=== PATIENT | female | born 1990 | race Caucasian/White ===

== ENCOUNTER 2020-02-21 08:36 | Emergency (ER) | payer OTHER, SELFPAY ==
[2020-02-21 08:42] VITALS: BP 115/75; PULSE 89; RESP 16; TEMP 36.5; O2SAT 98; BMI 32.0
[2020-02-21 09:25] LABS: Glucose Urine UA NEG (NEG); Leukocyte Esterase Urine NEG (NEG); Nitrite Urine NEG (NEG); PH 5.5 (5.0-8.0); Specific Gravity - Urine >= 1.030 (1.005-1.025); Urine Blood 1+ (NEG); Urine Ketones NEG (NEG); Urine Protein NEG (NEG-TRACE)
[2020-02-21 09:26] LABS: Appearance Urine CLOUDY; Color Urine YELLOW
[2020-02-21 09:44] LABS: UPreg QC Valid YES; Urine Pregnancy NEGATIVE (NEGATIVE); WBC Urine 30-49 /HPF (0-4)
[2020-02-21 09:45] LABS: Bacteria Urine 1+ /LPF; Squamous Epithelial Cell Urine 1+ /LPF
[2020-02-21 10:02] VITALS: BP 120/73; PULSE 73; RESP 18; TEMP 36.4; O2SAT 100
--- NOTE | 2020-02-21 10:19 | ED_ITS ---
HPI - Female Genitourinary General Chief complaint: Urogenital-Female Stated complaint: bladder infection Time Seen by Provider: 02/21/20 08:45 Source: patient Mode of arrival: ambulatory Limitations: no limitations History of Present Illness HPI Narrative: 29-year-old female presenting to the ED with complaints of burning with urination in a white thin malodorous discharge for the past 3 days. Denies any fevers, nausea / vomiting, abdominal pain or any other symptom complaints or concerns. Reports she has been with her partner for over 4 years and does not have any concerns for any STDs. Reports no chance of . Related Data Previous Rx's Medication Instructions Recorded metronidazole [Flagyl] 500 mg PO BID 7 Days #14 tab 02/21/20 nitrofurantoin monohyd/m-cryst 100 mg PO BID 7 Days #14 cap 02/21/20 [Macrobid] Allergies Allergy/AdvReac Type Severity Reaction Status Date / Time No Known Allergies Allergy Verified 02/21/20 08:47 Review of Systems Review of Systems: Constitutional : No Fever, No Chills ENT/Mouth : No sore throat, No Rhinorrhea Eyes: No Eye Pain, No Redness Cardiovascular : No Chest Pain, No SOB Respiratory : No Cough, No Sputum, No Wheezing Gastrointestinal : No Nausea, No Vomiting, No Diarrhea, positive abdominal pain, Genitourinary : No irregular bleeding, + Dysuria, + Urinary Frequency, No pelvic pain, + Vaginal discharge Musculoskeletal : No Myalgias Skin : No rash Neuro : No Weakness, No Headache Psych : No Anxiety/Panic, No Depression Heme/Lymph: No bruising, No Lymphadenopathy Endocrine : No Polyuria, No Polydipsia Yes all other systems are reviewed and are negative [facility] Past Medical History Attestation statement: The following information was validated with the patient. Medical History No known health problems Social History Social History Advance Directives: No Advance Directives Information Provided: No Physical Exam Vital Signs: Vital Signs: Last Vital Signs Temp 97.6 F 02/21/20 10:02 Pulse 73 02/21/20 10:02 Resp 18 02/21/20 10:02 BP 120/73 02/21/20 10:02 Pulse Ox 100 02/21/20 10:02 Body Mass Index 32.0 vital signs have been reviewed as normal and appeared to be correct. Blood pressure normal. Heart rate normal. Respiration rate normal. Temperature normal. Oxygen saturation normal. Appearance: Alert. Oriented X3. No acute distress. Head: Normal external exam. Normocephalic. Atraumatic. No Sherwood signs noted. No raccoon eyes noted Eyes: PERRLA. EOMI. Conjunctiva and sclera normal. Eyelids normal. ENT: EAC normal. TM's Normal. Pharynx normal. Uvula midline. Moist mucous membranes. No trismus noted. No drooling noted. No muffled voice noted. Neck: Normal inspection. Neck supple. FROM. No adenopathy. Thyroid Normal. No meningeal signs. No neck mass noted. CVS: Normal heart rate and rhythm. Heart sound normal. No murmurs noted. Pulses normal throughout. Respiratory: No respiratory distress. Painless inspiration. Breath sounds normal. No wheezes/rales/rhonchi noted. Chest nontender. No accessory muscle usage noted or decreased air movement noted. Abdomen: Soft and nontender. Bowel sounds normal in all 4 quadrants. No distention noted. No organomegaly noted. No visible injury noted. : Supervised by SIMON Rudolph Normal external appearance of urethra. No lesions/lacerations or discharge or tenderness noted. Speculum exam normal appearance/palpation of vagina normal. A thin white malodorous discharge c/w bacterial vaginosis. Otherwise no vaginal erythema. No foreign bodies noted. No vaginal laceration/lesions or active bleeding noted. No tissue present in vagina. No vaginal mass noted. No vaginal swelling noted. No vaginal tenderness noted. Normal appearance of cervix. Normal palpation of cervix. Cervical os is closed. No abnormal cervical discharge noted. No cervical lesion/mass. No Bartholin cyst noted. No cervical motion tenderness noted. Negative chandelier sign. Normal bimanual exam. Uterine size normal. Bladder normal to palpation. Uterine consistency normal. Normal cervical palpation. Uterine mobility normal. Uterine shape normal. Normal adnexa. Normal rectovaginal exam. Back: No CVA tenderness. Full range of motion noted. Skin: Skin warm and dry. Normal skin color. Normal skin turgor. No rashes/lesions/lacerations noted. Extremities: No lower extremity edema. Extremities exhibit normal range of motion. Extremities nontender. Neuro: Oriented X 3. No motor deficit. No sensory deficit. Reflexes normal. Course Course Course Narrative: 29-year-old female presenting to the ED with complaints of dysuria with increased urgency and frequency with a white thin malodorous discharge for the past 2-3 days. Reports a history of BV in the past. Reports she is not concerned for any STDs has she has been with her partner for over 4 years. I sent a UA and negative nitrates although she has moved multiple white blood cells and a trace of epithelial cells therefore consistent with UTI. Negative . Urine bacteria is positive therefore will treat for bacterial vaginosis. Awaiting Trichomonas/yeast/ bacterial vaginosis/ gonorrhea/ chlamydia panel. Although not treating for gonorrhea / chlamydia/yeast or Trichomonas will treat for only bacterial vaginosis and instructions return if any new or worsening symptoms and to wait a call if any positive results. Patient understands and agrees with this plan. MDM - Female Genitourinary Medical Records Attestation: I reviewed the patient's medical records. Lab Data Attestation: I reviewed the patient's lab results. Labs: Lab Results 02/21/20 Range/Units 09:19 Urine Color YELLOW Urine Appearance CLOUDY Urine pH 5.5 (5.0-8.0) Ur Specific [place] >= 1.030 H (1.005-1.025) Urine Protein NEG (NEG-TRACE) MG/DL Urine Glucose (UA) NEG (NEG) MG/DL Urine Ketones NEG (NEG) MG/DL Urine Blood 1+ H (NEG) Urine Nitrite NEG (NEG) Ur Leukocyte Esterase NEG (NEG) Urine RBC 1-4 (0) /HPF Urine WBC 30-49 H (0-4) /HPF Ur Squamous Epith Cells 1+ /LPF Urine Bacteria 1+ /LPF Urine Test NEGATIVE (NEGATIVE) Discharge Plan Discharge Clinical Impression: Urinary tract infection, Bacterial vaginosis Patient Disposition: Home, Self-Care Instructions: Bacterial Vaginosis (ED), Urinary Tract Infection in Women (ED) Additional Instructions: you have pending lab results if any are positive you will be contacted. Prescriptions: New metronidazole [Flagyl] 500 mg tablet 500 mg PO BID 7 Days Qty: 14 RF: 0 nitrofurantoin monohyd/m-cryst [Macrobid] 100 mg capsule 100 mg PO BID 7 Days Qty: 14 RF: 0 Referrals: Tristen Pederson MD [Primary Care Provider] - 2 days Print Language: Turkmen
[2020-02-21 13:15] LABS: BV Int Neg Control Negative (Negative); BV Int Pos Control Positive (Positive)
[2020-02-26 15:29] LABS: CT PCR NOT DETECTED (Not Detect.); NG PCR NOT DETECTED (Not Detect.)
== END 2020-02-21 10:32 | disposition home or self-care (01) ==
PROVIDERS: Physician Assistant Medical; Emergency Provider Internal Medicine; PCP Internal Medicine
DX: N39.0 Urinary tract infection, site not specified (principal); N76.0 Acute vaginitis; Z79.899 Other long term (current) drug therapy
CPT/HCPCS: 81001; 81025; 87086; 87088; 87147; 87186; 87480; 87491; 87510; 87591; 87660; 99283

== ENCOUNTER 2020-12-20 10:45 | Emergency (ER) | payer OTHER, SELFPAY ==
[2020-12-20 11:11] VITALS: BP 137/71; PULSE 79; RESP 18; TEMP 36.7; O2SAT 99; BMI 32.2
--- NOTE | 2020-12-20 12:32 | ED.EXTPRO ---
HPI - Extremity Problem General Chief complaint: Extremity Injury, Upper Stated complaint: nail injury Time Seen by Provider: 12/20/20 12:20 Source: patient Mode of arrival: ambulatory Limitations: no limitations History of Present Illness HPI Narrative: 30-year-old female presenting to the ED with complaints of right middle finger nail pain after she was opening a diaper box in her acrylic nail bent backwards and since then she has been having pain. She denies any other symptoms complaints or concerns at this time. MD Complaint: extremity pain Onset (ago): minute(s) (Prior to arrival) Pain Consistency: constant Location: right and upper extremity (Middle fingernail) Severity scale (1-10): >10 Radiation: none Relieving factors: nothing Exacerbating factors: palpation Associated symptoms: denies other symptoms Related Data Previous Rx's Medication Instructions Recorded metronidazole 500 mg tablet 500 mg PO BID 7 Days #14 tab 02/21/20 (Flagyl) nitrofurantoin 100 mg PO BID 7 Days #14 cap 02/21/20 monohydrate/macrocrystals 100 mg capsule (Macrobid) cephalexin 500 mg capsule 500 mg PO Q6H 10 Days #40 cap 12/20/20 ibuprofen 800 mg tablet 800 mg PO Q8H PRN #14 tab 12/20/20 Allergies Allergy/AdvReac Type Severity Reaction Status Date / Time No Known Allergies Allergy Verified 12/20/20 11:11 Review of Systems Review of Systems: Constitutional : No Weight loss, No Fever, No Chills, No Night Sweats, No Fatigue, No Malaise ENT/Mouth : No Hearing loss, No Ear Pain, No Nasal Congestion, No Sinus Pain, No Hoarseness, No sore throat, No Rhinorrhea, No Swallowing Difficulty Eyes: No Eye Pain, No Swelling, No Redness, No Foreign Body, No Discharge, No Vision Changes Cardiovascular : No Chest Pain, No SOB, No Dyspnea on Exertion, No Orthopnea, No Edema, No Palpitations Respiratory : No Cough, No Sputum, No Wheezing, No Smoke Exposure, No Dyspnea Gastrointestinal : No Nausea, No Vomiting, No Diarrhea, No Constipation, No abdominal Pain, No Hematochezia, No Melena Genitourinary : no irregular bleeding, No Dysuria, No Urinary Frequency, No Hematuria, No Urinary Incontinence, No Urgency, No Flank Pain, No Urinary Flow Changes, No Hesitancy Musculoskeletal : + Nail injury, No joint pain, No Myalgias, No Joint Swelling Skin : No Skin Lesions, No rash Neuro : No Weakness, No Numbness, No Paresthesias, No Loss of Consciousness, No Dizziness, No Headache Psych : No Anxiety/Panic, No Depression, No SI/HI/AH/VH, No Social Issues, Heme/Lymph: No Bruising, No Bleeding,No Lymphadenopathy Endocrine : No Polyuria, No Polydipsia, No Temperature Intolerance Yes all other systems are reviewed and are negative [facility] Past Medical History Attestation statement: The following information was validated with the patient. Medical History No known health problems Social History Social History Advance Directives: No Physical Exam Vital Signs: Vital Signs: Last Vital Signs Temp 98.0 F 12/20/20 11:11 Pulse 79 12/20/20 11:11 Resp 18 12/20/20 11:11 BP 137/71 12/20/20 11:11 Pulse Ox 99 12/20/20 11:11 Body Mass Index 32.2 vital signs have been reviewed as normal and appeared to be correct. Blood pressure normal. Heart rate normal. Respiration rate normal. Temperature normal. Oxygen saturation normal. Appearance: Alert. Oriented X3. No acute distress. Head: Normal external exam. Normocephalic. Atraumatic. Eyes: PERRLA. EOMI. Conjunctiva and sclera normal. Eyelids normal. ENT: Pharynx normal. Uvula midline. Moist mucous membranes. Neck: Normal inspection. Neck supple. FROM. CVS: Normal heart rate and rhythm. Respiratory: No respiratory distress. Painless inspiration. Skin: Skin warm and dry. Normal skin color. Normal skin turgor. No rashes/lesions/lacerations noted. Extremities: To right index finger at the nail patient has an acrylic nail at the distal aspect of the nail not including the nail bed patient has the acrylic nail hanging off by a piece of thread I was able to pull it off and the rest of the nail was within normal limits. The nailbed is within normal limits. No foreign bodies noted. No bony tenderness is noted. Otherwise all other Extremities exhibit normal range of motion and nontender. Neuro: Oriented X 3. No motor deficit. No sensory deficit. Reflexes normal. Normal steady gait. No focal neuro deficits noted. Vascular: + radial pulses/+ 2 distal pedal pulses/+2 dorsalis pedis b/l. Normal cap refill. No cyanosis noted to upper extremity nails and lower extremity toes nails. Discharge Plan Discharge Clinical Impression: Fingernail injury Patient Disposition: Home, Self-Care Instructions: Nail Avulsion (ED) Prescriptions: New ibuprofen 800 mg tablet 800 mg PO Q8H PRN (Reason: pain) Qty: 14 RF: 0 cephalexin 500 mg capsule 500 mg PO Q6H 10 Days Qty: 40 RF: 0 No Action metronidazole [Flagyl] 500 mg tablet 500 mg PO BID 7 Days Qty: 14 RF: 0 nitrofurantoin monohyd/m-cryst [Macrobid] 100 mg capsule 100 mg PO BID 7 Days Qty: 14 RF: 0 Referrals: Tristen Pederson MD [Primary Care Provider] - 2 days Print Language: Kuwaiti
== END 2020-12-20 12:46 | disposition home or self-care (01) ==
PROVIDERS: Emergency Provider Emergency Medicine; PCP Internal Medicine
DX: S61.302A Unspecified open wound of right middle finger with damage to nail, initial encounter (principal); M79.641 Pain in right hand; X58.XXXA Exposure to other specified factors, initial encounter; Y93.9 Activity, unspecified; Y92.9 Unspecified place or not applicable; Y99.9 Unspecified external cause status; Z79.899 Other long term (current) drug therapy
CPT/HCPCS: 99282; 99283

== ENCOUNTER 2021-01-26 19:07 | Emergency (ER) | payer OTHER, SELFPAY ==
[2021-01-26 19:15] VITALS: BP 127/68; PULSE 77; RESP 18; TEMP 36.7; O2SAT 99; BMI 31.1
[2021-01-26 19:37] LABS: Appearance Urine HAZY; Color Urine YELLOW; Glucose Urine UA NEG (NEG); Leukocyte Esterase Urine 1+ (NEG); Nitrite Urine NEG (NEG); UACC Culture Trigger YES; Urine Blood TRACE (NEG); Urine Ketones NEG (NEG); Urine Protein TRACE MG/DL (NEG-TRACE)
[2021-01-26 19:43] LABS: Bacteria Urine 1+ /LPF; Squamous Epithelial Cell Urine 1+ /LPF
[2021-01-26 19:44] LABS: RBC Urine 0-2 /HPF (0)
[2021-01-26] MEDS: cephALEXin 500 MG CAPSULE PO (21:25)
--- NOTE | 2021-01-26 21:34 | ED.FEMALEGU ---
HPI - Female Genitourinary General Chief complaint: Urogenital-Female Stated complaint: bladder infection Time Seen by Provider: 01/26/21 21:18 Source: patient Mode of arrival: ambulatory History of Present Illness HPI Narrative: 30-year-old female without significant past medical history who presents with 2-3 days of pain, burning on urination as well as frequency and denies any associated fever, chills, nausea, vomiting. Related Data Previous Rx's Medication Instructions Recorded metronidazole 500 mg tablet 500 mg PO BID 7 Days #14 tab 02/21/20 (Flagyl) nitrofurantoin 100 mg PO BID 7 Days #14 cap 02/21/20 monohydrate/macrocrystals 100 mg capsule (Macrobid) cephalexin 500 mg capsule 500 mg PO Q6H 10 Days #40 cap 12/20/20 ibuprofen 800 mg tablet 800 mg PO Q8H PRN #14 tab 12/20/20 cephalexin 500 mg capsule 500 mg PO Q12H 3 Days #6 cap 01/26/21 phenazopyridine 100 mg tablet 100 mg PO TID PRN #6 tab 01/26/21 (Pyridium) Allergies Allergy/AdvReac Type Severity Reaction Status Date / Time No Known Allergies Allergy Verified 01/26/21 19:14 Review of Systems Review of Systems: Pertinent positives and negatives as stated in HPI 10 point review of systems is otherwise negative. PMFSH Past Medical History Source: nursing notes reviewed Medical History Urinary tract infection Social History Social History Advance Directives: No Advance Directives Information Provided: No Patient : No Physical Exam Vital Signs: Vital Signs: Last Vital Signs Temp 98.1 F 01/26/21 19:15 Pulse 77 01/26/21 19:15 Resp 18 01/26/21 19:15 BP 127/68 01/26/21 19:15 Pulse Ox 99 01/26/21 19:15 Body Mass Index 31.1 VITAL SIGNS: Reviewed. GENERAL: Well developed, well nourished, in no acute distress. HEAD: Normocephalic/atraumatic EYES: PERRLA, EOMI OROPHARYNX: no oral lesions noted, posterior pharynx clear NECK: Supple, no adenopathy LUNGS: Normal breath sounds. SpO2<99> CARDIOVASCULAR: Regular rate and rhythm without noted murmurs ABDOMEN: Soft, non-tender, non-distended with bowel sounds. Course Course Course Narrative: 30-year-old female with history and clinical presentation consistent with UTI which was further corroborated and patient was treated with initial antibiotics here in the emergency room and then discharged in stable condition with remaining course. MDM - Female Genitourinary Lab Data Labs: Lab Results 01/26/21 Range/Units 19:25 Urine Color YELLOW Urine Appearance HAZY Urine pH 7.0 (5.0-8.0) Ur Specific [place] 1.020 (1.005-1.025) Urine Protein TRACE (NEG-TRACE) MG/DL Urine Glucose (UA) NEG (NEG) MG/DL Urine Ketones NEG (NEG) MG/DL Urine Blood TRACE (NEG) Urine Nitrite NEG (NEG) Ur Leukocyte Esterase 1+ H (NEG) Urine RBC 0-2 (0) /HPF Urine WBC 1-4 (0-4) /HPF Ur Squamous Epith Cells 1+ /LPF Urine Bacteria 1+ /LPF Discharge Plan Discharge Clinical Impression: Urinary tract infection Patient Disposition: Home, Self-Care Instructions: Cephalexin (By mouth), Phenazopyridine (By mouth), Urinary Tract Infection in Women (ED) Additional Instructions: 1. Please complete the entire course of antibiotics. Return to the ER for acute worsening of symptoms. Prescriptions: New cephalexin 500 mg capsule 500 mg PO Q12H 3 Days Qty: 6 RF: 0 phenazopyridine [Pyridium] 100 mg tablet 100 mg PO TID PRN (Reason: pain) Qty: 6 RF: 0 No Action metronidazole [Flagyl] 500 mg tablet 500 mg PO BID 7 Days Qty: 14 RF: 0 nitrofurantoin monohyd/m-cryst [Macrobid] 100 mg capsule 100 mg PO BID 7 Days Qty: 14 RF: 0 ibuprofen 800 mg tablet 800 mg PO Q8H PRN (Reason: pain) Qty: 14 RF: 0 cephalexin 500 mg capsule 500 mg PO Q6H 10 Days Qty: 40 RF: 0 Referrals: [facility] [Primary Care Provider] - 2 days
== END 2021-01-26 22:13 | disposition home or self-care (01) ==
PROVIDERS: Emergency Provider Student in an Organized Health Care Education/Training Program
DX: N39.0 Urinary tract infection, site not specified (principal)
CPT/HCPCS: 81001; 87086; 87147; 99283; 99284

== ENCOUNTER 2022-02-02 09:02 | Emergency (ER) | payer OTHER, SELFPAY ==
[2022-02-02 09:09] VITALS: BP 136/76; PULSE 89; RESP 16; TEMP 36.8; O2SAT 99; BMI 34.9
[2022-02-02 09:24] LABS: Appearance Urine Clear; Color Urine Yellow; Glucose Urine UA Negative (Negative); Leukocyte Esterase Urine Small (1+) (Negative); Nitrite Urine Negative (Negative); Specific Gravity - Urine 1.025 (1.005-1.025); UMIC TRIGGER UACC YES; Urine Blood Trace (Negative); Urine Ketones Negative (Negative); Urine Protein Negative (Neg-Trace)
--- NOTE | 2022-02-02 09:24 | ED_ITS ---
HPI - Female Genitourinary General Chief complaint: Urogenital-Female Stated complaint: Bladder Infection Time Seen by Provider: 02/02/22 09:20 Source: patient Mode of arrival: ambulatory Limitations: no limitations History of Present Illness HPI Narrative: Patient is a 31-year-old female who presents emergency department for evaluation of foul-smelling urine and urinary frequency. She has reports of vague back pain intermittently. Denies fevers, chills, nausea, vomiting, abdominal pain, dysuria, urinary urgency/hesitancy. Denies any pelvic pain, denies possibility of . She does also endorse having some white creamy vaginal discharge. States that she has had this in the past was advised by her maintenance superintendent provider that this is a vaginosis, she states that she has had an increase in discharge recently. Denies concern for sexually transmitted infections. Related Data Previous Rx's Medication Instructions Recorded metronidazole 500 mg tablet 500 mg PO BID BV 7 days #14 tabs 02/21/20 (Flagyl) nitrofurantoin 100 mg PO BID uti 7 days #14 caps 02/21/20 monohydrate/macrocrystals 100 mg capsule (Macrobid) cephalexin 500 mg capsule 500 mg PO Q6H 10 days #40 caps 12/20/20 ibuprofen 800 mg tablet 800 mg PO Q8H PRN pain #14 tabs 12/20/20 cephalexin 500 mg capsule 500 mg PO Q12H 3 days #6 caps 01/26/21 phenazopyridine 100 mg tablet 100 mg PO TID PRN pain 6 doses #6 01/26/21 (Pyridium) tabs cefuroxime axetil 250 mg tablet 250 mg PO Q12H #14 tabs 02/02/22 Allergies Allergy/AdvReac Type Severity Reaction Status Date / Time No Known Allergies Allergy Verified 01/26/21 19:14 Review of Systems Review of Systems: Constitutional: No fever, chills, weakness or fatigue. Skin: No rash or itching. Cardiovascular: No chest pain Respiratory: No shortness of breath or cough Gastrointestinal: No nausea, vomiting or diarrhea. No abdominal pain Genitourinary: Positive Urinary odor. Positive Vaginal discharge. No burning micturition. No urinary frequency or incontinence. Musculoskeletal: No muscle pain, back pain, joint pain or stiffness. Psychiatric: No depression or anxiety. Yes all other systems are reviewed and are negative PMFSH Past Medical History Attestation statement: The following information was validated with the patient. Source: old records reviewed Medical History Urinary tract infection Social History Social History Advance Directives: No Advance Directives Information Provided: Yes Physical Exam Vital Signs: Vital Signs: Last Vital Signs Temp 98.2 F 02/02/22 09:09 Pulse 89 02/02/22 09:09 Resp 16 02/02/22 09:09 BP 136/76 02/02/22 09:09 Pulse Ox 99 02/02/22 09:09 O2 Del Method 02/02/22 09:09 BMI result Body Mass Index 34.9 Appearance: Alert.?Oriented to person, place and time. No acute distress.?Normal affect..?? Neck: Normal inspection.? Neck supple.?? CVS: Heart sounds normal. Normal heart rate and rhythm.? Pulses normal.?? Respiratory: No respiratory distress.? Lung sounds clear to auscultation bilaterally?? Abdomen: Soft and non-tender. Normoactive bowel sounds. Skin: Skin warm and dry.? Normal skin color.? Extremities: No lower extremity edema.? Neuro: Moves all extremities spontaneously. Sensation intact bilaterally. Ambulates with normal steady gait. Course Course Course Narrative: Patient is a 31-year-old female no pertinent past medical history presenting to emergency department for evaluation of odorous urine, urinary frequency, and vaginal discharge. Patient declines possibility sexually transmitted infections and declines testing for such. Declines possibility of at this time, date of last menstrual period is uncertain. Physical examination is benign. Vital signs are stable. Afebrile without tachycardia. Specimen for bacterial vaginosis panel was sent to lab, results will be pending at the time of discharge, advised she will be contacted should her results come back as p ositive. Urine test is negative. Urinalysis reveals pyuria with trace bacteria and trace blood, no squamous epithelial cells present, therefore less likely to be urogenital contamination given patient's symptoms will treat as urinary tract infection. Given prescription for cefuroxime, discussed worrisome signs and symptoms to return back to emergency department for, outpatient follow-up with her primary care provider as needed. All questions answered. Discharged home in stable condition. MDM - Female Genitourinary Medical Records Attestation: I reviewed the patient's medical records. Lab Data Attestation: I reviewed the patient's lab results. Labs: Lab Results 02/02/22 Range/Units 09:18 Urine Color Yellow Urine Appearance Clear Urine pH 6.0 (5.0-9.0) Ur Specific [place] 1.025 (1.005-1.025) Urine Protein Negative (Neg-Trace) mg/dL Urine Glucose (UA) Negative (Negative) mg/dL Urine Ketones Negative (Negative) mg/dL Urine Blood Trace H (Negative) Urine Nitrite Negative (Negative) Ur Leukocyte Esterase Small (1+) H (Negative) Urine RBC 3-5 H (0-2) /HPF Urine WBC 21-50 H (0-5) /HPF Ur Squamous Epith Cells 0-2 (0-2) /HPF Urine Bacteria Trace (None Seen) Hyaline Casts 0-2 (0-2) /LPF Discharge Plan Discharge Clinical Impression: Urinary tract infection Patient Disposition: Home, Self-Care Instructions: Urinary Tract Infection in Women (ED) Additional Instructions: Be sure to stay well hydrated, avoid excessive vaginal/perineal cleansing, avoid douching, be sure to urinate after sexual intercourse. Given given a new prescription for an antibiotic, please complete this entire course. As discussed, should your additional testing results come back as positive you will receive a phone call in regards to this. Return to emergency department any new or worsening symptoms or concerns Follow-up with her primary care provider as needed Prescriptions: New cefuroxime axetil 250 mg tablet 250 mg PO Q12H Qty: 14 0RF No Action metronidazole [Flagyl] 500 mg tablet 500 mg PO BID 7 Days Qty: 14 0RF nitrofurantoin monohyd/m-cryst [Macrobid] 100 mg capsule 100 mg PO BID 7 Days Qty: 14 0RF Rx Instructions: must administer with a meal/food cephalexin 500 mg capsule 500 mg PO Q12H 3 Days Qty: 6 0RF phenazopyridine [Pyridium] 100 mg tablet 100 mg PO TID PRN (Reason: pain) Qty: 6 0RF ibuprofen 800 mg tablet 800 mg PO Q8H PRN (Reason: pain) Qty: 14 0RF cephalexin 500 mg capsule 500 mg PO Q6H 10 Days Qty: 40 0RF Referrals: Physician,None [Primary Care Provider] -
[2022-02-02 09:29] LABS: Bacteria Urine Trace (None Seen); Hyaline Casts Urine 0-2 /LPF (0-2); Squamous Epithelial Cell Urine 0-2 /HPF (0-2); UACC Culture Trigger YES; WBC Urine 21-50 /HPF (0-5)
[2022-02-02 09:42] LABS: UPreg QC Valid YES; Urine Pregnancy NEGATIVE (NEGATIVE)
[2022-02-03 15:01] LABS: BV Int Neg Control Negative (Negative); BV Int Pos Control Positive (Positive)
== END 2022-02-02 09:54 | disposition home or self-care (01) ==
PROVIDERS: Nurse Practitioner Family; Emergency Provider Emergency Medicine Emergency Medical Services
DX: N39.0 Urinary tract infection, site not specified (principal); Z79.899 Other long term (current) drug therapy
CPT/HCPCS: 81001; 81025; 87086; 87088; 87186; 87480; 87510; 87660; 99282; 99283

== ENCOUNTER 2022-06-30 07:57 | Emergency (ER) | payer OTHER, SELFPAY ==
[2022-06-30 08:00] VITALS: BP 133/68; PULSE 83; RESP 18; TEMP 36.6; O2SAT 98; BMI 34.2
--- NOTE | 2022-06-30 08:41 | ED.FEMALEGU ---
HPI - Female Genitourinary General Chief complaint: Urogenital-Female Stated complaint: bladder infection Time Seen by Provider: 06/30/22 08:33 Source: patient Mode of arrival: ambulatory Limitations: no limitations History of Present Illness HPI Narrative: 32-year-old female previously healthy here with complaints of 1 week of urinary urgency, frequency, foul smelling urine. No back pain, abdominal pain, fever or vomiting. Patient reports her last menstrual cycle was June 01. She is currently bleeding now. She does report some intermittent creamy white discharge this week. She is sexually active with 1 male partner who she has been with for 7 years. She is not concern for any STDs and does not want to be tested. Related Data Previous Rx's Medication Instructions Recorded metronidazole 500 mg tablet 500 mg PO BID BV 7 days #14 tabs 02/21/20 (Flagyl) nitrofurantoin 100 mg PO BID uti 7 days #14 caps 02/21/20 monohydrate/macrocrystals 100 mg capsule (Macrobid) cephalexin 500 mg capsule 500 mg PO Q6H 10 days #40 caps 12/20/20 ibuprofen 800 mg tablet 800 mg PO Q8H PRN pain #14 tabs 12/20/20 cephalexin 500 mg capsule 500 mg PO Q12H 3 days #6 caps 01/26/21 phenazopyridine 100 mg tablet 100 mg PO TID PRN pain 6 doses #6 01/26/21 (Pyridium) tabs cefuroxime axetil 250 mg tablet 250 mg PO Q12H #14 tabs 02/02/22 nitrofurantoin 100 mg PO Q12H 5 days #10 caps 06/30/22 monohydrate/macrocrystals 100 mg capsule (Macrobid) phenazopyridine 200 mg tablet 200 mg PO TID PRN pain 6 doses #10 06/30/22 (Pyridium) tabs Allergies Allergy/AdvReac Type Severity Reaction Status Date / Time No Known Allergies Allergy Verified 01/26/21 19:14 Review of Systems Review of Systems: Yes all other systems are reviewed and are negative Constitutional: Constitutional: Reports no additional constitutional complaints, Denies body ache(s), Denies chills, Denies fever(s), Denies headache(s) and Denies weakness Eyes: Eyes: Reports no additional eye complaints and Denies change in vision ENT: Reports system reviewed and no additional complaints, except as documented, Denies dizziness, Denies headache(s), Denies nasal congestion, Denies nasal discharge and Denies neck pain Cardiovascular: Cardiovascular: Reports no additional cardiovascular complaints, Denies chest pain, Denies leg edema and Denies dyspnea Respiratory: Respiratory: Reports no additional respiratory complaints, Denies cough and Denies dyspnea Gastrointestinal: Gastrointestinal: Reports no additional gastrointestinal complaints, Denies abdominal pain, Denies diarrhea, Denies nausea and Denies vomiting Genitourinary: Genitourinary: Reports no additional female genitourinary complaints, Reports dysuria, Denies flank pain, Denies urinary incontinence, Denies urinary hesitancy, Reports urinary urgency and Reports vaginal discharge Musculoskeletal: Musculoskeletal: Reports no additional musculoskeletal complaints, Denies back pain, Denies arthralgias, Denies joint swelling, Denies neck pain, Denies numbness and Denies tingling Integumentary/Breasts: Skin/Breast: Reports system reviewed and no additional complaints, except as docu and Denies rash Neurologic: Reports system reviewed and no additional complaints, except as documented, Denies Abnormal speech present, Denies dizziness, Denies headache(s), Denies numbness, Denies tingling and Denies weakness PMFSH Past Medical History Attestation statement: The following information was validated with the patient. Source: old records reviewed and nursing notes reviewed Medical History Urinary tract infection Social History Social History Advance Directives: No Advance Directives Information Provided: Yes Physical Exam Vital Signs: Vital Signs: Last Vital Signs Temp 97.8 F 06/30/22 08:00 Pulse 83 06/30/22 08:00 Resp 18 06/30/22 08:00 BP 133/68 06/30/22 08:00 Pulse Ox 98 06/30/22 08:00 BMI result Body Mass Index 34.2 Const: General: cooperative, healthy appearing, comfortable and no acute distress Orientation/consciousness: patient oriented x3 Limitations: no limitations HEENT: Head: Yes normal to inspection Ears: hearing grossly normal bilaterally General nose exam: Normal external nose present Face and sinus: Yes normal facial exam Mouth: Normal oral and palatal mucosa present Throat: Yes posterior oropharynx normal Eyes: General: appearance normal, both eyes and all related structures Pupils: Equal, round and reactive pupils present Neck: Neck: Yes normal visual inspection Chest: Chest palpation & inspection: normal inspection of the chest Resp: Effort & Inspection: normal respiratory effort Auscultation: clear to auscultation bilaterally Cardio: Rate: regular rate Rhythm: regular rhythm Peripheral pulses: Peripheral pulses 2+ throughout GI: Inspection: Yes normal to inspection Palpation (GI): Soft to palpation and nontender Auscultation: normal bowel sounds : Other: Gaby Gama chperrandi External Female Exam: normal external appearance Back/Spine/Pelvis: Thoracic/Lumbar Spine: thoracic and lumbar spine normal to inspection Skin: General skin exam: no rashes or lesions noted Neuro: General: patient oriented x3, no focal motor deficits and normal sensation to monofilament Cranial nerves: Yes Equal, round and reactive pupils present Cognition (Neuro): normal cognition Speech: No Abnormal speech present Gait exam (Neuro): Normal gait present Motor exam (neuro): 5/5 motor strength present throughout Extrem: General: Yes normal to inspection Course Course Course Narrative: UA is consistent with a urinary tract infection. Patient will be discharged home with course of antibiotics and Pyridium p.r.n.. Reviewed worrisome signs and symptoms of when to return to the emergency room. Comfortable plan for discharge home. Medical Decision Making Medical Decision Making [facility] Narrative: 32 yo female here with UTI symptoms x 1 week, also vag discharge. NO pelvic or flank pain. Patient does not want to be tested for STDs although this was offered Will send UA, urine , BV panel Differential Diagnosis Differential Diagnoses: The differential diagnosis associated with the presentation includes UTI Low concern for pyelonephritis or renal colic Vaginal infection Consider gonorrhea, chlamydia Low concern for PID or TOA Lab Data [facility] Lab Attestation statement: I reviewed the patient's lab results. Labs: Lab Results 06/30/22 06/30/22 Range/Units 08:54 08:54 Urine Color Dark Yellow Urine Appearance Turbid Urine pH 5.5 (5.0-9.0) Ur Specific [place] >= 1.030 H (1.005-1.025) Urine Protein 30 (1+) H (Neg-Trace) mg/dL Urine Glucose (UA) Negative (Negative) mg/dL Urine Ketones Negative (Negative) mg/dL Urine Blood Large (3+) H (Negative) Urine Nitrite Negative (Negative) Ur Leukocyte Esterase Moderate (2+) H (Negative) Urine RBC >20 H (0-2) /HPF Urine WBC >50 H (0-5) /HPF Ur Squamous Epith Cells 6-10 (0-2) /HPF Urine Bacteria 4+ (None Seen) Hyaline Casts 0-2 (0-2) /LPF Urine Test NEGATIVE (NEGATIVE) Discharge Plan Discharge Clinical Impression: Urinary tract infection Patient Disposition: Home, Self-Care Instructions: Urinary Tract Infection in Women (ED) Additional Instructions: Your urine shows that you have an infection. We are starting you on antibiotic. Take the antibiotic as prescribed. Increase fluids, rest. We did send testing for common vaginal infections. These results take 1-2 days to come back. We will call you if there are positive and if you require additional treatment Prescriptions: New nitrofurantoin monohyd/m-cryst [Macrobid] 100 mg capsule 100 mg PO Q12H 5 Days Qty: 10 0RF Rx Instructions: must administer with a meal/food phenazopyridine [Pyridium] 200 mg tablet 200 mg PO TID PRN (Reason: pain) Qty: 10 0RF No Action metronidazole [Flagyl] 500 mg tablet 500 mg PO BID 7 Days Qty: 14 0RF nitrofurantoin monohyd/m-cryst [Macrobid] 100 mg capsule 100 mg PO BID 7 Days Qty: 14 0RF Rx Instructions: must administer with a meal/food cephalexin 500 mg capsule 500 mg PO Q12H 3 Days Qty: 6 0RF phenazopyridine [Pyridium] 100 mg tablet 100 mg PO TID PRN (Reason: pain) Qty: 6 0RF ibuprofen 800 mg tablet 800 mg PO Q8H PRN (Reason: pain) Qty: 14 0RF cephalexin 500 mg capsule 500 mg PO Q6H 10 Days Qty: 40 0RF cefuroxime axetil 250 mg tablet 250 mg PO Q12H Qty: 14 0RF Referrals: Physician,Unknown J [Primary Care Provider] - 1 week
--- NOTE | 2022-06-30 08:57 | PC.NURSE ---
Provider at bedside for pelvic swab with this RN, urine obtained
[2022-06-30 09:02] LABS: Appearance Urine Turbid; Color Urine Dark Yellow; Glucose Urine UA Negative (Negative); Leukocyte Esterase Urine Moderate (2+) (Negative); Nitrite Urine Negative (Negative); PH 5.5 (5.0-9.0); Specific Gravity - Urine >= 1.030 (1.005-1.025); UMIC TRIGGER UACC YES; Urine Blood Large (3+) (Negative); Urine Ketones Negative (Negative); Urine Protein 30 (1+) mg/dL (Neg-Trace)
[2022-06-30 09:04] LABS: UPreg QC Valid YES; Urine Pregnancy NEGATIVE (NEGATIVE)
[2022-06-30 09:07] LABS: Bacteria Urine 4+ (None Seen); Hyaline Casts Urine 0-2 /LPF (0-2); RBC Urine >20 /HPF (0-2); UACC Culture Trigger YES; WBC Urine >50 /HPF (0-5)
[2022-07-01 11:14] LABS: BV Int Neg Control Negative (Negative); BV Int Pos Control Positive (Positive)
== END 2022-06-30 09:48 | disposition home or self-care (01) ==
PROVIDERS: Nurse Practitioner Family; Emergency Provider Emergency Medicine
DX: N39.0 Urinary tract infection, site not specified (principal); B96.20 Unspecified Escherichia coli [E. coli] as the cause of diseases classified elsewhere; Z79.899 Other long term (current) drug therapy
CPT/HCPCS: 81001; 81003; 81025; 87086; 87088; 87186; 87480; 87510; 87660; 99282; 99283

== ENCOUNTER 2022-07-31 10:59 | Emergency (ER) | payer OTHER, SELFPAY ==
--- NOTE | 2022-07-31 11:27 | ED_ITS ---
HPI - Dental/Oral General Chief complaint: Dental/Oral Stated complaint: Dental Pain Time Seen by Provider: 07/31/22 11:21 Source: patient, RN notes reviewed and old records reviewed Mode of arrival: ambulatory History of Present Illness HPI Narrative: 32-year-old female with no significant past medical history presenting to the ED complaining of left upper posterior dental pain x 1 week. Admits tooth has been broken for a while. It took extra strength Tylenol with some relief. Denies recent dental procedures, fever/chills, ear pain, sore throat, difficulty/inability to swallow MD Complaint: tooth pain Related Data Previous Rx's Medication Instructions Recorded metronidazole 500 mg tablet 500 mg PO BID BV 7 days #14 tabs 02/21/20 (Flagyl) nitrofurantoin 100 mg PO BID uti 7 days #14 caps 02/21/20 monohydrate/macrocrystals 100 mg capsule (Macrobid) cephalexin 500 mg capsule 500 mg PO Q6H 10 days #40 caps 12/20/20 ibuprofen 800 mg tablet 800 mg PO Q8H PRN pain #14 tabs 12/20/20 cephalexin 500 mg capsule 500 mg PO Q12H 3 days #6 caps 01/26/21 phenazopyridine 100 mg tablet 100 mg PO TID PRN pain 6 doses #6 01/26/21 (Pyridium) tabs cefuroxime axetil 250 mg tablet 250 mg PO Q12H #14 tabs 02/02/22 nitrofurantoin 100 mg PO Q12H 5 days #10 caps 06/30/22 monohydrate/macrocrystals 100 mg capsule (Macrobid) phenazopyridine 200 mg tablet 200 mg PO TID PRN pain 6 doses #10 06/30/22 (Pyridium) tabs amoxicillin 875 mg-potassium 1 tab PO BID 7 days #14 tabs 07/31/22 clavulanate 125 mg tablet naproxen 500 mg tablet 500 mg PO BID PRN pain 10 days #20 07/31/22 tabs Allergies Allergy/AdvReac Type Severity Reaction Status Date / Time No Known Allergies Allergy Verified 01/26/21 19:14 Review of Systems Review of Systems: Constitutional: No Fever, No Chills ENT/Mouth: +dental pain, No Ear Pain, No Nasal Congestion, No Hoarseness, No sore throat, No Rhinorrhea, No Swallowing Difficulty Cardiovascular: No Chest Pain, No SOB Respiratory: No Cough, No Sputum Gastrointestinal: No Nausea, No Vomiting, No Abdominal pain Musculoskeletal: No joint pain, No Myalgias, No Joint Swelling Skin: No Skin Lesions, No rash Neuro: No Weakness Yes all other systems are reviewed and are negative Constitutional: Constitutional: Reports as per [facility] Past Medical History Attestation statement: The following information was validated with the patient. Source: old records reviewed Medical History Urinary tract infection Social History Social History Advance Directives: No Physical Exam Vital Signs: Vital Signs: Last Vital Signs Temp 97.3 F 07/31/22 11:28 Pulse 69 07/31/22 11:28 Resp 16 07/31/22 11:28 BP 121/72 07/31/22 11:28 Pulse Ox 99 07/31/22 11:28 O2 Del Method Room Air 07/31/22 11:28 BMI result Body Mass Index 32.7 Const: General: cooperative, healthy appearing and no acute distress Orientation/consciousness: patient oriented x3 Limitations: no limitations HEENT: Head: Yes normal to inspection and Yes atraumatic Ears: hearing grossly normal bilaterally, external ears normal and TM's normal bilaterally General nose exam: Normal external nose present Face and sinus: Yes normal facial exam Teeth and gingiva: caries, gingiva abnormal tender (left upper 3rd molar w/erythema and mild swelling. No fluctuance/induration) and poor dentition Throat: Yes posterior oropharynx normal, Yes uvula midline, No peritonsillar mass and No uvula laterally displaced Eyes: General: appearance normal, both eyes and all related structures EOM: EOMs intact bilaterally Neck: Neck: Yes normal visual inspection, Yes no lymphadenopathy and Yes no meningeal signs Resp: Effort & Inspection: normal respiratory effort and no respiratory distress Cardio: Rate: regular rate GI: Inspection: Yes normal to inspection Skin: Rashes: no rashes Wounds: no wounds Neuro: General: patient oriented x3, tone normal and no meningeal signs Gait exam (Neuro): Normal gait present Extrem: General: Yes normal to inspection Medical Decision Making Medical Decision Making MDM Narrative: 32-year-old female with no significant past medical history presenting to the ED complaining of left upper posterior dental pain x 1 week. On exam vital signs stable, NAD, nontoxic appearing, physical exam as above with left upper 3rd molar gingival swelling/erythema and tenderness. Diffuse dental caries/poor dentition. No fluctuance/induration or appreciable abscess. Discussed with patient at length needs to follow-up with dentist Plan: P.o. antibiotics Please refer to course for remaining clinical decision making, interpretation of labs/imaging results, and discussions with consultants and/or family members. Differential Diagnosis Differential Diagnoses: The differential diagnosis associated with the presentation includes As above External Record Review External record reviewed: Inpatient record, Office record, Outpatient record, Prior outpatient labs, Prior outpatient radiology, Primary care record and Outside ED record Tests considered The following testing was considered but not selected: As above Discharge Plan Discharge Clinical Impression: Toothache, Gingival erythema Patient Disposition: Home, Self-Care Instructions: Toothache (ED) Additional Instructions: Augmentin is antibiotic please take as prescribed. Naproxen as an anti-inflammatory/pain medication please take with food You need to follow-up with a dentist, call to make an appointment If symptoms persist or worsen, pain becomes unbearable, you develop facial swelling or fever return to the ED Prescriptions: New naproxen 500 mg tablet 500 mg PO BID PRN (Reason: pain) 10 Days Qty: 20 0RF amoxicillin-pot clavulanate 875-125 mg tablet 1 tab PO BID 7 Days Qty: 14 0RF No Action metronidazole [Flagyl] 500 mg tablet 500 mg PO BID 7 Days Qty: 14 0RF nitrofurantoin monohyd/m-cryst [Macrobid] 100 mg capsule 100 mg PO BID 7 Days Qty: 14 0RF Rx Instructions: must administer with a meal/food cephalexin 500 mg capsule 500 mg PO Q12H 3 Days Qty: 6 0RF phenazopyridine [Pyridium] 100 mg tablet 100 mg PO TID PRN (Reason: pain) Qty: 6 0RF ibuprofen 800 mg tablet 800 mg PO Q8H PRN (Reason: pain) Qty: 14 0RF cephalexin 500 mg capsule 500 mg PO Q6H 10 Days Qty: 40 0RF cefuroxime axetil 250 mg tablet 250 mg PO Q12H Qty: 14 0RF nitrofurantoin monohyd/m-cryst [Macrobid] 100 mg capsule 100 mg PO Q12H 5 Days Qty: 10 0RF Rx Instructions: must administer with a meal/food phenazopyridine [Pyridium] 200 mg tablet 200 mg PO TID PRN (Reason: pain) Qty: 10 0RF Referrals: Trenton Washington [Dentist] - Joaquin Cintron DMD [Dentist] - Demar Lanier DMD [Dentist] - Jeny Pang DMD [Dentist] -
[2022-07-31 11:28] VITALS: BP 121/72; PULSE 69; RESP 16; TEMP 36.3; O2SAT 99; BMI 32.7
== END 2022-07-31 12:07 | disposition home or self-care (01) ==
PROVIDERS: Emergency Provider Student in an Organized Health Care Education/Training Program
DX: K08.89 Other specified disorders of teeth and supporting structures (principal); K06.8 Other specified disorders of gingiva and edentulous alveolar ridge; Z79.899 Other long term (current) drug therapy
CPT/HCPCS: 99282; 99283

== ENCOUNTER 2022-09-11 00:21 | Emergency (ER) | payer OTHER, SELFPAY ==
[2022-09-11 00:27] VITALS: BP 153/78; PULSE 88; RESP 20; TEMP 36.9; O2SAT 98; BMI 34.0
--- NOTE | 2022-09-11 01:57 | ED.GENADULT ---
HPI - General Adult General Chief complaint: Dental/Oral Stated complaint: Toothache Time Seen by Provider: 09/11/22 01:49 Source: patient, RN notes reviewed and old records reviewed Mode of arrival: ambulatory Limitations: no limitations History of Present Illness HPI narrative: 32-year-old female presents for evaluation of left facial pain/dental pain Patient reports that she woke up with a pain yesterday morning. She denies any recent trauma to the area She does have a fractured left lower molar from years ago Denies any fevers, chills, facial swelling Her pain is 10/10, sharp, stabbing Related Data Previous Rx's Medication Instructions Recorded metronidazole 500 mg tablet 500 mg PO BID BV 7 days #14 tabs 02/21/20 (Flagyl) nitrofurantoin 100 mg PO BID uti 7 days #14 caps 02/21/20 monohydrate/macrocrystals 100 mg capsule (Macrobid) cephalexin 500 mg capsule 500 mg PO Q6H 10 days #40 caps 12/20/20 ibuprofen 800 mg tablet 800 mg PO Q8H PRN pain #14 tabs 12/20/20 cephalexin 500 mg capsule 500 mg PO Q12H 3 days #6 caps 01/26/21 phenazopyridine 100 mg tablet 100 mg PO TID PRN pain 6 doses #6 01/26/21 (Pyridium) tabs cefuroxime axetil 250 mg tablet 250 mg PO Q12H #14 tabs 02/02/22 nitrofurantoin 100 mg PO Q12H 5 days #10 caps 06/30/22 monohydrate/macrocrystals 100 mg capsule (Macrobid) phenazopyridine 200 mg tablet 200 mg PO TID PRN pain 6 doses #10 06/30/22 (Pyridium) tabs amoxicillin 875 mg-potassium 1 tab PO BID 7 days #14 tabs 07/31/22 clavulanate 125 mg tablet naproxen 500 mg tablet 500 mg PO BID PRN pain 10 days #20 07/31/22 tabs amoxicillin 500 mg capsule 500 mg PO TID #21 caps 09/11/22 oxycodone 5 mg tablet 5 mg PO Q6H PRN severe pain (scale 09/11/22 score 7-10) #12 tabs Allergies Allergy/AdvReac Type Severity Reaction Status Date / Time No Known Allergies Allergy Verified 09/11/22 00:27 Review of Systems Constitutional: Constitutional: Denies chills and Denies fever(s) ENT: Reports facial pain and Denies throat swelling Allergic/Immunologic: Allergic/Immunologic: Denies throat swelling PMFSH Past Medical History Medical History Urinary tract infection Social History Social History Alcohol intake: never Smoked in Last 30 Days: No Use of substances other than those prescribed or required for medical reasons: No Advance Directives: No Advance Directives Information Provided: Yes Patient : No Physical Exam ED Vital Signs: Vital Signs - 24 hr 09/11/22 00:27 Temperature 98.4 F Pulse Rate 88 Respiratory Rate 20 Blood Pressure 153/78 H Pulse Oximetry 98 Oxygen Delivery Method Room Air BMI result Body Mass Index 34.0 Const General: healthy appearing, comfortable, no acute distress, alert and awake Nutritional Appearance: well nourished Orientation/consciousness: patient oriented x3 HENMT Other: Patient has mild erythema around the root of the left lower molar, 2nd from back. The root is exposed, no significant abscess noted Head: Yes normocephalic and Yes atraumatic Eyes Eyelids: Yes eyelids normal Conjunctivae: conjunctivae normal Sclerae: sclerae normal Corneas: corneas normal Pupils: Equal, round and reactive pupils present EOM: EOMs intact bilaterally Neck Neck: No anterior neck swelling Resp Effort & Inspection: normal respiratory effort, able to speak in complete sentences and not labored Skin General skin exam: no rashes or lesions noted and elasticity normal Neuro General: patient oriented x3 Cranial nerves: Yes Equal, round and reactive pupils present and Yes Bilaterally intact EOM present Cognition (Neuro): normal cognition Extrem Other: Moving all extremities well without any obvious deformities Medical Decision Making Medical Decision Making MDM Narrative: Patient has a previous left lower molar dental fracture and apparent acute infection. Will treat with amoxicillin. She will be given a short course oxycodone. No obvious abscess, no fevers, chills. She was instructed to follow-up with her dentist Differential Diagnosis Facial pain Dental pain A typical pain Dental abscess Dental caries Dental trauma Gingivitis Discharge Plan Discharge Clinical Impression: Atypical face pain Patient Disposition: Home, Self-Care Instructions: Atypical Facial Pain (ED) Additional Instructions: Take amoxicillin 3 times daily for 7 days. Use ibuprofen/Tylenol for pain. You may use [id number] benzocaine to numb the area Take oxycodone for severe, breakthrough pain. This may make you sleepy, do not drink alcohol or drive after taking Follow-up with your primary doctor Prescriptions: New amoxicillin 500 mg capsule 500 mg PO TID Qty: 21 0RF oxycodone 5 mg tablet 5 mg PO Q6H PRN (Reason: severe pain (scale score 7-10)) Qty: 12 0RF Rx Instructions: Partial Fill upon patient request. No Action metronidazole [Flagyl] 500 mg tablet 500 mg PO BID 7 Days Qty: 14 0RF nitrofurantoin monohyd/m-cryst [Macrobid] 100 mg capsule 100 mg PO BID 7 Days Qty: 14 0RF Rx Instructions: must administer with a meal/food cephalexin 500 mg capsule 500 mg PO Q12H 3 Days Qty: 6 0RF phenazopyridine [Pyridium] 100 mg tablet 100 mg PO TID PRN (Reason: pain) Qty: 6 0RF ibuprofen 800 mg tablet 800 mg PO Q8H PRN (Reason: pain) Qty: 14 0RF cephalexin 500 mg capsule 500 mg PO Q6H 10 Days Qty: 40 0RF cefuroxime axetil 250 mg tablet 250 mg PO Q12H Qty: 14 0RF nitrofurantoin monohyd/m-cryst [Macrobid] 100 mg capsule 100 mg PO Q12H 5 Days Qty: 10 0RF Rx Instructions: must administer with a meal/food phenazopyridine [Pyridium] 200 mg tablet 200 mg PO TID PRN (Reason: pain) Qty: 10 0RF naproxen 500 mg tablet 500 mg PO BID PRN (Reason: pain) 10 Days Qty: 20 0RF amoxicillin-pot clavulanate 875-125 mg tablet 1 tab PO BID 7 Days Qty: 14 0RF
[2022-09-11] MEDS: Amoxicillin 500 MG CAPSULE PO (02:00)
[2022-09-11] MEDS: Ketorolac Tromethamine 30 MG/ML VIAL IM (02:00)
== END 2022-09-11 02:13 | disposition home or self-care (01) ==
PROVIDERS: Emergency Provider Internal Medicine
DX: R51.9 Headache, unspecified (principal); Z79.899 Other long term (current) drug therapy
CPT/HCPCS: 96372; 99284; J1885

== ENCOUNTER 2022-12-10 19:37 | Emergency (ER) | payer OTHER, SELFPAY ==
[2022-12-10 19:59] VITALS: BP 111/65; PULSE 86; RESP 18; TEMP 36.7; O2SAT 96; BMI 34.2
--- NOTE | 2022-12-10 20:00 | ED_ITS ---
HPI - General Adult General Chief complaint: Eye Problems Stated complaint: left eye pain,drainage Time Seen by Provider: 12/10/22 20:03 Source: patient Mode of arrival: ambulatory Limitations: no limitations History of Present Illness HPI narrative: Patient is a 32 year old assigned female at with no reported medical history presenting to the emergency department today with left eye pain. Patient states that her son recently had pink eye and now her left eye is bothering her. Patient denies any dizziness, lightheadedness, abdominal pain, nausea, vomiting, fever, chills, blurry vision, double vision, loss of vision, chest pain, difficulty breathing, shortness of breath, back pain, night sweats, pain with urination, increased urinary frequency, increased urinary urgency, blood in her urine or stool, syncope or a near syncopal episode, recent trauma or falls, bowel incontinence, bladder incontinence, bowel retention, bladder retention, or any other complaints at this time. Onset (ago): day(s) Location: eyes and left Radiation: non-radiation Severity: mild Severity scale (1-10): 3 Quality: aching and dull Pain Consistency: constant Relieving factors: none Exacerbating factors: none Associated symptoms: denies other symptoms Treatments prior to arrival: none Related Data Previous Rx's Medication Instructions Recorded metronidazole 500 mg tablet 500 mg PO BID BV 7 days #14 tabs 02/21/20 (Flagyl) nitrofurantoin 100 mg PO BID uti 7 days #14 caps 02/21/20 monohydrate/macrocrystals 100 mg capsule (Macrobid) cephalexin 500 mg capsule 500 mg PO Q6H 10 days #40 caps 12/20/20 ibuprofen 800 mg tablet 800 mg PO Q8H PRN pain #14 tabs 12/20/20 cephalexin 500 mg capsule 500 mg PO Q12H 3 days #6 caps 01/26/21 phenazopyridine 100 mg tablet 100 mg PO TID PRN pain 6 doses #6 01/26/21 (Pyridium) tabs cefuroxime axetil 250 mg tablet 250 mg PO Q12H #14 tabs 02/02/22 nitrofurantoin 100 mg PO Q12H 5 days #10 caps 06/30/22 monohydrate/macrocrystals 100 mg capsule (Macrobid) phenazopyridine 200 mg tablet 200 mg PO TID PRN pain 6 doses #10 06/30/22 (Pyridium) tabs amoxicillin 875 mg-potassium 1 tab PO BID 7 days #14 tabs 07/31/22 clavulanate 125 mg tablet naproxen 500 mg tablet 500 mg PO BID PRN pain 10 days #20 07/31/22 tabs amoxicillin 500 mg capsule 500 mg PO TID #21 caps 09/11/22 oxycodone 5 mg tablet 5 mg PO Q6H PRN severe pain (scale 09/11/22 score 7-10) #12 tabs erythromycin 5 mg/gram (0.5 %) eye 0.5 inch ophthalmic (eye) Q4H #3.5 12/10/22 ointment grams Allergies Allergy/AdvReac Type Severity Reaction Status Date / Time No Known Allergies Allergy Verified 12/10/22 20:02 Review of Systems Constitutional: Constitutional: Reports no additional constitutional complain ts, Denies chills, Denies fever(s) and Denies night sweats Eyes: Eyes: Reports no additional eye complaints, Denies blurry vision, Denies change in vision, Denies diplopia, Denies eye discharge, Reports irritation, Denies loss of vision and Reports eye pain ENT: Denies dizziness Cardiovascular: Cardiovascular: Reports no additional cardiovascular complaints, Denies chest pain, Denies lightheadedness, Denies Loss of Consciousness and Denies dyspnea Respiratory: Respiratory: Reports no additional respiratory complaints and Denies dyspnea Gastrointestinal: Gastrointestinal: Reports no additional gastrointestinal complaints, Denies abdominal pain, Denies melena, Denies hematochezia, Denies change in bowel habits and Denies change in stool character Genitourinary: Genitourinary: Denies hematuria, Denies urinary frequency, Denies dysuria, Denies urinary incontinence, Denies urinary hesitancy and Denies urinary urgency Musculoskeletal: Musculoskeletal: Reports no additional musculoskeletal complaints, Denies numbness and Denies tingling Neurologic: Denies dizziness, Denies loss of vision, Denies numbness and Denies tingling Psychiatric: Psychiatric: Reports no additional psychiatric complaints Endocrine: Endocrine: Reports no additional endocrine complaints Hematologic/Lymphatic: Hematologic/Lymphatic: Reports no additional hematologic/lymphatic complaints Allergic/Immunologic: Allergic/Immunologic: Reports no additional allergic/immunologic complaints PMFSH Past Medical History Attestation statement: The following information was validated with the patient. Source: old records reviewed and nursing notes reviewed Medical History Urinary tract infection Social History Social History Alcohol intake: never Advance Directives: No Advance Directives Information Provided: No Physical Exam ED Vital Signs: Vital Signs - 24 hr 12/10/22 19:59 Temperature 98.1 F Pulse Rate 86 Respiratory Rate 18 Blood Pressure 111/65 Pulse Oximetry 96 Oxygen Delivery Method Room Air BMI result Body Mass Index 34.2 Const General: cooperative, no acute distress, alert and awake Nutritional Appearance: well nourished Orientation/consciousness: patient oriented x3 Limitations: no limitations HENMT Head: Yes normal to inspection and Yes atraumatic Ears: hearing grossly normal bilaterally and external ears normal General nose exam: Normal external nose present, no nasal discharge noted and no epistaxis Face and sinus: Yes normal facial exam, No abrasion and No laceration Mouth: Normal oral and palatal mucosa present, no drooling and no muffled voice Eyes Other: left upper and lower eye lid swelling, pain Conjunctivae: conjunctivae normal Pupils: Equal, round and reactive pupils present EOM: EOMs intact bilaterally Neck Neck: Yes normal visual inspection, Yes full ROM and Yes no lymphadenopathy Chest Chest palpation & inspection: normal inspection of the chest Resp Effort & Inspection: normal respiratory effort and able to speak in complete sentences GI Inspection: Yes normal to inspection Neuro General: patient oriented x3 and moves all extremities Cranial nerves: Yes Equal, round and reactive pupils present Cognition (Neuro): normal cognition Motor exam (neuro): 5/5 motor strength present throughout Sensory Exam: Normal double simultaneous stimulation for sensation Coordination: [id number] test normal Extrem General: Yes normal to inspection, Yes full ROM and Yes capillary refill normal Psych Appearance: grossly normal Mental Status: mental status grossly normal Affect: normal affect Attitude: cooperative Thought process: Normal thought process present Thought content: Normal thought content present Insight: Good insight present (Psych) Medications Administered Discontinued Medications Generic Name Dose Route Start Last Admin Trade Name Freq PRN Reason Stop Dose Admin Erythromycin 1 cm 12/10/22 20:03 12/10/22 20:08 Erythromycin Base 0.5% Oph Oin 1 Gm Tube EYE-LEFT 12/10/22 20:04 1 cm ONCE ONE Administration Medical Decision Making Medical Decision Making MDM Narrative: Patient is a 32 year old assigned female at with no reported medical history presenting to the emergency department today with left eye pain and swelling. Patient's physical exam was as noted in the physical exam portion of this note. I explained my physical exam findings to the patient. I answered all questions asked by the patient. I stressed the importance of the patient taking her medication as prescribed. I stressed the importance of the patient following up with her primary care provider. I stressed the importance of the patient returning to the emergency department immediately if her symptoms were to worsen or if she were to develop any dizziness, shortness of breath, difficulty breathing, chest pain, blurry vision, loss of vision, nausea, vomiting, abdominal pain, fever, chills, back pain, or any other complaints. Patient verbalized agreement and understanding with this treatment plan and discharge. Differential Diagnosis Differential Diagnoses: The differential diagnosis associated with the presentation includes Conjunctivitis Prescription Management I considered prescription management with: Antibiotic (patient prescribed an antibiotic) Discharge Plan Discharge Clinical Impression: Conjunctivitis Patient Disposition: Home, Self-Care Instructions: Conjunctivitis (ED) Additional Instructions: Follow up with your primary care provider. Return to the emergency department immediately if your symptoms worsen or if you develop any dizziness, shortness of breath, difficulty breathing, chest pain, blurry vision, loss of vision, nausea, vomiting, abdominal pain, fever, chills, back pain, or any other complaints. Prescriptions: New erythromycin 5 mg/gram (0.5 %) ointment 0.5 inch ophthalmic (eye) Q4H Qty: 3.5 0RF No Action metronidazole [Flagyl] 500 mg tablet 500 mg PO BID 7 Days Qty: 14 0RF nitrofurantoin monohyd/m-cryst [Macrobid] 100 mg capsule 100 mg PO BID 7 Days Qty: 14 0RF Rx Instructions: must administer with a meal/food cephalexin 500 mg capsule 500 mg PO Q12H 3 Days Qty: 6 0RF phenazopyridine [Pyridium] 100 mg tablet 100 mg PO TID PRN (Reason: pain) Qty: 6 0RF ibuprofen 800 mg tablet 800 mg PO Q8H PRN (Reason: pain) Qty: 14 0RF cephalexin 500 mg capsule 500 mg PO Q6H 10 Days Qty: 40 0RF cefuroxime axetil 250 mg tablet 250 mg PO Q12H Qty: 14 0RF amoxicillin 500 mg capsule 500 mg PO TID Qty: 21 0RF oxycodone 5 mg tablet 5 mg PO Q6H PRN (Reason: severe pain (scale score 7-10)) Qty: 12 0RF Rx Instructions: Partial Fill upon patient request. nitrofurantoin monohyd/m-cryst [Macrobid] 100 mg capsule 100 mg PO Q12H 5 Days Qty: 10 0RF Rx Instructions: must administer with a meal/food phenazopyridine [Pyridium] 200 mg tablet 200 mg PO TID PRN (Reason: pain) Qty: 10 0RF naproxen 500 mg tablet 500 mg PO BID PRN (Reason: pain) 10 Days Qty: 20 0RF amoxicillin-pot clavulanate 875-125 mg tablet 1 tab PO BID 7 Days Qty: 14 0RF Referrals: [facility] [Provider Group] (Call to establish and follow up with a primary care provider. If you already have a primary care provider, please follow up with them.) [facility] [place] [facility] [[facility]] (Call to establish and follow up with a primary care provider. If you already have a primary care provider, please follow up with them.) [facility] [place] [facility] [Provider Group] (Call to establish and follow up with a primary care provider. If you already have a primary care provider, please follow up with them.) Interventions: ED Discharge Assessment Last Done: 12/10/22 20:10 Discharge Date/Time: 12/10/22 20:19 Print Language: Spanish
[2022-12-10] MEDS: Erythromycin Base 0.5% Oph Oin 1 GM TUBE 1 CM EYE-LEFT (20:08)
== END 2022-12-10 20:19 | disposition home or self-care (01) ==
LOC: HO.ED 20:12
PROVIDERS: Emergency Provider Emergency Medicine
DX: H10.022 Other mucopurulent conjunctivitis, left eye (principal)
CPT/HCPCS: 99282; 99283

== ENCOUNTER 2023-04-09 08:58 | Emergency (ER) | payer OTHER, SELFPAY ==
[2023-04-09 09:04] VITALS: BP 127/83; PULSE 93; RESP 18; TEMP 36.6; O2SAT 95; BMI 34.0
--- NOTE | 2023-04-09 09:47 | ED.FEMALEGU ---
HPI - Female Genitourinary General Chief complaint: Urogenital-Female Stated complaint: Bladder Infection Time Seen by Provider: 04/09/23 09:45 Source: patient Mode of arrival: ambulatory Limitations: no limitations History of Present Illness HPI Narrative: Patient is a 32-year-old female presenting to the emergency department with complaint of urinary frequency, dysuria and suprapubic abdominal discomfort for the past 2 weeks. Patient reports initially symptoms were mild, then began to slowly worsened over this past week. She denies fevers, nausea, vomiting, diarrhea. Denies back or flank pain. Denies any hematuria. Denies any difficulty urinating. Denies any abnormal vaginal discharge, denies any concern for STIs. MD elicited complaint: UTI Pertinent past history: recurrent UTIs Onset (ago): week(s) Location of symptoms: suprapubic Severity: moderate Female Urogenital Radiation: Non-Radiating Severity scale (1-10): 6 Quality of pain: aching Consistency: intermittent Vaginal discharge: none Vaginal bleeding: none Urinary symptoms: Dysuria, Urgency, Frequency and Foul Smelling Urine Exacerbating factors: urination Relieving factors: none Associated symptoms: denies other symptoms Treatment prior to arrival: none Sexual activity: Yes Patient : No Related Data Previous Rx's Medication Instructions Recorded metronidazole 500 mg tablet 500 mg PO BID BV 7 days #14 tabs 02/21/20 (Flagyl) nitrofurantoin 100 mg PO BID uti 7 days #14 caps 02/21/20 monohydrate/macrocrystals 100 mg capsule (Macrobid) cephalexin 500 mg capsule 500 mg PO Q6H 10 days #40 caps 12/20/20 ibuprofen 800 mg tablet 800 mg PO Q8H PRN pain #14 tabs 12/20/20 cephalexin 500 mg capsule 500 mg PO Q12H 3 days #6 caps 01/26/21 phenazopyridine 100 mg tablet 100 mg PO TID PRN pain 6 doses #6 01/26/21 (Pyridium) tabs cefuroxime axetil 250 mg tablet 250 mg PO Q12H #14 tabs 02/02/22 nitrofurantoin 100 mg PO Q12H 5 days #10 caps 06/30/22 monohydrate/macrocrystals 100 mg capsule (Macrobid) phenazopyridine 200 mg tablet 200 mg PO TID PRN pain 6 doses #10 06/30/22 (Pyridium) tabs amoxicillin 875 mg-potassium 1 tab PO BID 7 days #14 tabs 07/31/22 clavulanate 125 mg tablet naproxen 500 mg tablet 500 mg PO BID PRN pain 10 days #20 07/31/22 tabs amoxicillin 500 mg capsule 500 mg PO TID #21 caps 09/11/22 oxycodone 5 mg tablet 5 mg PO Q6H PRN severe pain (scale 09/11/22 score 7-10) #12 tabs erythromycin 5 mg/gram (0.5 %) eye 0.5 inch ophthalmic (eye) Q4H #3.5 12/10/22 ointment grams cefuroxime axetil 500 mg tablet 500 mg PO BID #14 tabs 04/09/23 Allergies Allergy/AdvReac Type Severity Reaction Status Date / Time No Known Allergies Allergy Verified 04/09/23 09:04 Review of Systems Review of Systems: As per HPI. Yes all other systems are reviewed and are negative Constitutional: Constitutional: Reports as per HPI [facility] Past Medical History Medical History Urinary tract infection Social History Social History Alcohol intake: current Alcohol intake frequency: a few times a month Smoked in Last 30 Days: Yes Use of substances other than those prescribed or required for medical reasons: No Advance Directives: No Advance Directives Information Provided: No Patient : No Physical Exam Vital Signs: Vital Signs: Last Vital Signs Temp 98 F 04/09/23 09:04 Pulse 93 04/09/23 09:04 Resp 18 04/09/23 09:04 BP 127/83 04/09/23 09:04 Pulse Ox 95 04/09/23 09:04 O2 Del Method Room Air 04/09/23 09:04 BMI result Body Mass Index 34.0 Vital signs have been reviewed and appear to be correct. Blood pressure normal. Heart rate normal. Respiratory rate normal. Temperature normal. Oxygen saturation normal. Const: General: cooperative, healthy appearing and no acute distress Orientation/consciousness: oriented to person, oriented to place, oriented to time and patient oriented x3 Limitations: no limitations HEENT: Head: Yes normocephalic and Yes atraumatic Ears: external ears normal General nose exam: Normal external nose present Face and sinus: Yes face symmetric Mouth: oropharynx normal and moist mucous membranes Throat: Yes uvula midline Eyes: Pupils: Equal, round and reactive pupils present Neck: Neck: Yes normal visual inspection and Yes supple Resp: Effort & Inspection: normal respiratory effort and able to speak in complete sentences Auscultation: clear to auscultation bilaterally Cardio: Rate: regular rate Rhythm: regular rhythm Heart sounds: S1 normal heart sound present and S2 normal heart sound present GI: Palpation (GI): Soft to palpation and nontender Auscultation: normoactive bowel sounds : General: Yes no CVA tenderness Back/Spine/Pelvis: Back: no CVA tenderness Skin: General skin exam: elasticity normal and turgor normal Neuro: General: oriented to person, oriented to place, oriented to time, patient oriented x3, moves all extremities, no focal motor deficits and CN's II-XI intact bilaterally Cranial nerves: Yes Equal, round and reactive pupils present Cognition (Neuro): normal cognition Extrem: General: Yes full ROM, Yes no pedal edema and Yes no calf tenderness Psych: Mental Status: mental status grossly normal Affect: normal affect Thought process: Normal thought process present Medical Decision Making Medical Decision Making [facility] Narrative: Patient is a 32-year-old female presenting to the emergency department with complaint of urinary frequency, dysuria and suprapubic abdominal discomfort for the past 2 weeks. On exam patient is awake, A+Ox3, VS WNL, afebrile, normal neurological exam without focal deficits, physical exam findings as above. Given reported symptoms and physical exam findings, initial differential includes UTI, pyelonephritis, renal calculi. UA notable for 1+ leukocytes, positive nitrites, 11-20 wbc's. Urine negative. Results discussed with patient and all questions answered. Previous cultures primarily positive for E coli. Will treat with cefuroxime. Instructed patient to follow-up with her primary care provider. Return precautions discussed at bedside. Patient verbalized understanding of and agreement with plan. Differential Diagnosis Differential Diagnoses: The differential diagnosis associated with the presentation includes As per MDM. Lab Data [facility] Lab Attestation statement: I reviewed the patient's lab results. As per [facility]. Labs: Lab Results 04/09/23 Range/Units 09:45 Urine Color Yellow Urine Appearance Cloudy Urine pH 5.5 (5.0-9.0) Ur Specific [place] 1.025 (1.005-1.025) Urine Protein Negative (Neg-Trace) mg/dL Urine Glucose (UA) Negative (Negative) mg/dL Urine Ketones Negative (Negative) mg/dL Urine Blood Negative (Negative) Urine Nitrite Positive H (Negative) Ur Leukocyte Esterase Small (1+) H (Negative) Urine RBC 0-2 (0-2) /HPF Urine WBC 11-20 H (0-5) /HPF Ur Squamous Epith Cells 0-2 (0-2) /HPF Urine Bacteria 4+ (None Seen) Hyaline Casts 0-2 (0-2) /LPF Urine Test NEGATIVE (NEGATIVE) External Record Review External record reviewed: Inpatient record, Office record and Outpatient record Prescription Management I considered prescription management with: Antibiotic Discharge Plan Discharge Clinical Impression: Urinary tract infection Patient Disposition: Home, Self-Care Instructions: Urinary Tract Infection in Women (DC) Additional Instructions: You have been evaluated in the emergency department today for your urinary symptoms. Your evaluation, including urinalysis, suggests that your symptoms are due to urinary tract infection. Please take your prescribed antibiotics for the full course of medication as directed. Please follow-up with your primary care provider within 2 days. Return to the emergency department if you experience fevers 100.4? F or greater, worsening or uncontrolled pain, vomiting, flank pain, or for any other concerning symptoms. Prescriptions: New cefuroxime axetil 500 mg tablet 500 mg PO BID Qty: 14 0RF No Action metronidazole [Flagyl] 500 mg tablet 500 mg PO BID 7 Days Qty: 14 0RF nitrofurantoin monohyd/m-cryst [Macrobid] 100 mg capsule 100 mg PO BID 7 Days Qty: 14 0RF Rx Instructions: must administer with a meal/food cephalexin 500 mg capsule 500 mg PO Q12H 3 Days Qty: 6 0RF phenazopyridine [Pyridium] 100 mg tablet 100 mg PO TID PRN (Reason: pain) Qty: 6 0RF ibuprofen 800 mg tablet 800 mg PO Q8H PRN (Reason: pain) Qty: 14 0RF cephalexin 500 mg capsule 500 mg PO Q6H 10 Days Qty: 40 0RF cefuroxime axetil 250 mg tablet 250 mg PO Q12H Qty: 14 0RF amoxicillin 500 mg capsule 500 mg PO TID Qty: 21 0RF oxycodone 5 mg tablet 5 mg PO Q6H PRN (Reason: severe pain (scale score 7-10)) Qty: 12 0RF Rx Instructions: Partial Fill upon patient request. erythromycin 5 mg/gram (0.5 %) ointment 0.5 inch ophthalmic (eye) Q4H Qty: 3.5 0RF nitrofurantoin monohyd/m-cryst [Macrobid] 100 mg capsule 100 mg PO Q12H 5 Days Qty: 10 0RF Rx Instructions: must administer with a meal/food phenazopyridine [Pyridium] 200 mg tablet 200 mg PO TID PRN (Reason: pain) Qty: 10 0RF naproxen 500 mg tablet 500 mg PO BID PRN (Reason: pain) 10 Days Qty: 20 0RF amoxicillin-pot clavulanate 875-125 mg tablet 1 tab PO BID 7 Days Qty: 14 0RF
[2023-04-09 09:53] LABS: Appearance Urine Cloudy; Color Urine Yellow; Glucose Urine UA Negative (Negative); Leukocyte Esterase Urine Small (1+) (Negative); Nitrite Urine Positive (Negative); PH 5.5 (5.0-9.0); Specific Gravity - Urine 1.025 (1.005-1.025); UMIC TRIGGER UACC YES; Urine Blood Negative (Negative); Urine Ketones Negative (Negative); Urine Protein Negative (Neg-Trace)
[2023-04-09 09:55] LABS: UPreg QC Valid YES; Urine Pregnancy NEGATIVE (NEGATIVE)
[2023-04-09 09:56] LABS: Bacteria Urine 4+ (None Seen); Hyaline Casts Urine 0-2 /LPF (0-2); RBC Urine 0-2 /HPF (0-2); Squamous Epithelial Cell Urine 0-2 /HPF (0-2); UACC Culture Trigger YES
[2023-04-09 10:55] VITALS: BP 140/67; PULSE 76; RESP 16; TEMP 36.4; O2SAT 100
== END 2023-04-09 10:59 | disposition home or self-care (01) ==
PROVIDERS: Emergency Provider Emergency Medicine Emergency Medical Services
DX: N39.0 Urinary tract infection, site not specified (principal); B96.20 Unspecified Escherichia coli [E. coli] as the cause of diseases classified elsewhere; Z87.440 Personal history of urinary (tract) infections
CPT/HCPCS: 81001; 81025; 87086; 87088; 87186; 99283; 99284

== ENCOUNTER 2023-09-05 12:53 | Emergency (ER) | payer OTHER, SELFPAY ==
[2023-09-05 12:58] VITALS: BP 157/64; PULSE 100; RESP 16; TEMP 36.2; O2SAT 97; BMI 33.1
--- NOTE | 2023-09-05 12:58 | ED_ITS ---
HPI - Female Genitourinary General Chief complaint: Urogenital-Female Stated complaint: bladder infection Time Seen by Provider: 09/05/23 13:49 Source: patient Mode of arrival: ambulatory Limitations: no limitations History of Present Illness ED Provider: JIA TOLEDO PA-C HPI Narrative: 33-year-old female with no significant past medical history presents to the ED today for evaluation of dysuria and increased urinary frequency x3 weeks now. Reports white/clear vaginal discharge. Reports she is sexually active with her partner of 8 years. Admits to unprotected intercourse with same partner. She is requesting to be screened for STIs at this time. She denies fever, chills, nausea or vomiting, hematuria, abdominal pain, flank pain, vaginal itching, vaginal bleeding. Denies change of . Related Data Previous Rx's ?Medication ?Instructions ?Recorded metronidazole 500 mg tablet 500 mg PO BID BV 7 days #14 tabs 02/21/20 (Flagyl) nitrofurantoin 100 mg PO BID uti 7 days #14 caps 02/21/20 monohydrate/macrocrystals 100 mg capsule (Macrobid) cephalexin 500 mg capsule 500 mg PO Q6H 10 days #40 caps 12/20/20 ibuprofen 800 mg tablet 800 mg PO Q8H PRN pain #14 tabs 12/20/20 cephalexin 500 mg capsule 500 mg PO Q12H 3 days #6 caps 01/26/21 phenazopyridine 100 mg tablet 100 mg PO TID PRN pain 6 doses #6 01/26/21 (Pyridium) tabs cefuroxime axetil 250 mg tablet 250 mg PO Q12H #14 tabs 02/02/22 nitrofurantoin 100 mg PO Q12H 5 days #10 caps 06/30/22 monohydrate/macrocrystals 100 mg capsule (Macrobid) phenazopyridine 200 mg tablet 200 mg PO TID PRN pain 6 doses #10 06/30/22 (Pyridium) tabs amoxicillin 875 mg-potassium 1 tab PO BID 7 days #14 tabs 07/31/22 clavulanate 125 mg tablet naproxen 500 mg tablet 500 mg PO BID PRN pain 10 days #20 07/31/22 tabs amoxicillin 500 mg capsule 500 mg PO TID #21 caps 09/11/22 oxycodone 5 mg tablet 5 mg PO Q6H PRN severe pain (scale 09/11/22 score 7-10) #12 tabs erythromycin 5 mg/gram (0.5 %) eye 0.5 inch ophthalmic (eye) Q4H #3.5 12/10/22 ointment grams cefuroxime axetil 500 mg tablet 500 mg PO BID #14 tabs 04/09/23 doxycycline monohydrate 100 mg 100 mg PO BID 7 days #14 caps 09/05/23 capsule metronidazole 500 mg tablet 500 mg PO BID 7 days #14 tabs 09/05/23 Allergies Allergy/AdvReac Type Severity Reaction Status Date / Time No Known Allergies Allergy Verified 09/05/23 13:05 Review of Systems Review of Systems: Constitutional: No fever, chills, fatigue, night sweats, weight changes ENT/Mouth: No ear pain, hearing loss, nasal congestion, sinus pain, rhinorrhea, sore throat Eyes: No eye pain, swelling, redness, vision changes, discharge Cardio: No chest pain, palpitations, LINDSAY, orthopnea, peripheral edema Pulm: No SOB, cough, sputum, wheezing, dyspnea, hemoptysis GI: No nausea, vomiting, hematemesis, abdominal pain, diarrhea, constipation, hematochezia, melena : No irregular bleeding,urgency, hesitancy, hematuria, flank pain, urinary flow changes, urinary incontinence or retention, +dysuria, +increased urinary frequency, +vaginal discharge MSK: No back pain, neck pain, joint pain, myalgias Skin: No lesions, rashes Neuro: No weakness, numbness, paresthesias, LOC, dizziness, headache Psych: No anxiety/panic, depression, SI/HI, AH/VH All other systems reviewed and are negative. [facility] Past Medical History Attestation statement: The following information was validated with the patient. Source: old records reviewed and nursing notes reviewed Medical History Urinary tract infection Social History Social History Alcohol intake: current Alcohol intake frequency: a few times a month Advance Directives: No Advance Directives Information Provided: Yes Physical Exam Vital Signs: Vital Signs: Last Vital Signs Temp 97.8 F 09/05/23 14:00 Pulse 80 09/05/23 14:00 Resp 16 09/05/23 12:58 BP 120/70 09/05/23 14:00 Pulse Ox 98 09/05/23 14:00 O2 Del Method Room Air 09/05/23 14:00 BMI result Body Mass Index 33.1 vital signs stable, afebrile Const: General: cooperative, healthy appearing, comfortable and no acute distress Orientation/consciousness: patient oriented x3 Limitations: no limitations HEENT: Head: Yes normal to inspection, Yes No palpable skull fracture present, Yes normocephalic and Yes atraumatic Eyes: General: appearance normal, both eyes and all related structures Conjunctivae: conjunctivae normal Sclerae: sclerae normal Pupils: Equal, round and reactive pupils present Neck: Neck: Yes normal visual inspection, Yes full ROM and Yes no lymphadenopathy Resp: Effort & Inspection: normal respiratory effort and able to speak in complete sentences Auscultation: clear to auscultation bilaterally Cardio: Rate: regular rate Rhythm: regular rhythm : Other: Sensitive exam performed with [facility] Tech present in room to blueprinting and photocopy supervisor. External genitalia is normal in appearance without lesions, swelling, masses or tenderness. Vaginal canal is pink and moist without lesions. There is purulent discharge noted within the canal and from the cervix. Cervix is non-tender without lesions or erosions. Uterus is anteflexed, non-tender and normal in size. Ovaries are non-tender without palpable masses or enlargement. No cervical motion tenderness on bimanual exam. Neuro: General: patient oriented x3 Cranial nerves: Yes Equal, round and reactive pupils present Course Course Course Narrative: This is a Rapid Medical Exam performed in triage by Abimbola Ramírez PA-C. Full HPI, ROS and PE to be performed by primary ED provider. 33 year-old w/F PMHx presenting to the ED c/o dysuria & frequency x ?few weeks (poor historian) & white vaginal discharge. is sexually active with the same partner x8 yrs but requesting to be tested for STIs. denies N/V/D, abd pain PE: nontoxic appearing, talking in complete sentences, respirations unlabored. Plan: UA, STI testing Reevaluation(s) Reevaluation #1: [id number]-- Urine is negative for infection and . Patient's pelvic exam significant for purulent vaginal discharge. I do not have concern for PID. Patient opting for prophylactic treatment with ceftriaxone, doxy and metronidazole. First dose given in the ED today. Advised patient that we will call her with any positive results over the next few days. Educated on safe sex practices and abstaining from intercourse until she has a officially tested negative for STIs. She verbalizes understanding. [facility] contact information provided. Patient has remained stable throughout ED visit today. Discussed worrisome signs and symptoms and when to return to the ED. All questions answered at this time. Patient is agreeable with disposition and stable for discharge. Medical Decision Making Medical Decision Making [facility] [place] Narrative: 33-year-old female with no significant past medical history presents to the ED today for evaluation of dysuria and increased urinary frequency x3 weeks now. Vital signs stable, afebrile. She is nontoxic-appearing and in no acute distress. Abdomen soft, ND/NT, no rebound or guarding. No CVAT. On sensitive exam, external genitalia is normal in appearance without lesions, swelling, masses or tenderness. Vaginal canal is pink and moist without lesions. There is purulent discharge noted within the canal and from the cervix. Cervix is non- tender without lesions or erosions. Uterus is anteflexed, non-tender and normal in size. Ovaries are non-tender without palpable masses or enlargement. No cervical motion tenderness on bimanual exam. Differential diagnosis includes urinary tract infection, sexually transmitted infection, candidal infection. Low suspicion for nephrolithiasis, renal colic, herpes zoster, herpes simplex, PID, pyelonephritis Plan for UA, u preg, CT/NG, trich and BV testing. Differential Diagnosis Differential Diagnoses: The differential diagnosis associated with the presentation includes as above. Admission/Observation Consideration of admission/observation: Escalation of care including admission/observation considered not indicated Lab Data [facility] [place] Lab Attestation statement: I reviewed the patient's lab results. as above Labs: Lab Results 09/05/23 Range/Units 13:54 Urine Color Yellow Urine Appearance Clear Urine pH 5.5 (5.0-9.0) Ur Specific [place] 1.025 (1.005-1.025) Urine Protein Negative (Neg-Trace) mg/dL Urine Glucose (UA) Negative (Negative) mg/dL Urine Ketones 15 (Negative) mg/dL Urine Blood Negative (Negative) Urine Nitrite Negative (Negative) Ur Leukocyte Esterase Negative (Negative) Urine Test NEGATIVE (NEGATIVE) External Record Review External record reviewed: Inpatient record Prescription Management I considered prescription management with: Antibiotic Social Determinants Patient?s care significantly limited by Social Determinants of Health including: Other Social Determinant of Health Critical Care Time Critical Care Time Critical Care Time: No Discharge Plan Discharge Clinical Impression: Dysuria Patient Disposition: Home, Self-Care Instructions: Cervicitis (ED), Sexually Transmitted Diseases (ED), Safe Sex Practices (ED), Dysuria (ED) Additional Instructions: Your urine is negative for infection and . We will call you with any positive results from your vaginal swabs collected today. You opted to be treated for STIs prophylactically today. You were administered a dose of ceftriaxone in the ED today. This is an antibiotic that treats gonorrhea. Doxycycline is an antibiotic that treats chlamydia. This has been sent to your pharmacy for you to take twice daily for the next 7 days. Metronidazole is an antibiotic that treats both bacterial vaginosis and trichomonas. This has been sent to your pharmacy for you to take twice daily over the next 7 days. Finish all antibiotics. Your partner needs to be tested and treated. Do not have sexual intercourse for 10 days or until you test negative for all STDs. If you have sex again with an untreated partner, you will be reinfected. Practice safe sex and use a condom. Further testing for herpes, syphilis, and HIV can be obtained at your local clinic or by your PCP. [facility] can assist with these tests. Return to the ED for fevers, no improvement, or worsening symptoms. [facility]: [address] [place], [place] [id number] [phone] Prescriptions: New doxycycline monohydrate 100 mg capsule 100 mg PO BID 7 Days Qty: 14 0RF metronidazole 500 mg tablet 500 mg PO BID 7 Days Qty: 14 0RF No Action metronidazole [Flagyl] 500 mg tablet 500 mg PO BID 7 Days Qty: 14 0RF nitrofurantoin monohyd/m-cryst [Macrobid] 100 mg capsule 100 mg PO BID 7 Days Qty: 14 0RF Rx Instructions: must administer with a meal/food cephalexin 500 mg capsule 500 mg PO Q12H 3 Days Qty: 6 0RF phenazopyridine [Pyridium] 100 mg tablet 100 mg PO TID PRN (Reason: pain) Qty: 6 0RF ibuprofen 800 mg tablet 800 mg PO Q8H PRN (Reason: pain) Qty: 14 0RF cephalexin 500 mg capsule 500 mg PO Q6H 10 Days Qty: 40 0RF cefuroxime axetil 250 mg tablet 250 mg PO Q12H Qty: 14 0RF amoxicillin 500 mg capsule 500 mg PO TID Qty: 21 0RF oxycodone 5 mg tablet 5 mg PO Q6H PRN (Reason: severe pain (scale score 7-10)) Qty: 12 0RF Rx Instructions: Partial Fill upon patient request. erythromycin 5 mg/gram (0.5 %) ointment 0.5 inch ophthalmic (eye) Q4H Qty: 3.5 0RF nitrofurantoin monohyd/m-cryst [Macrobid] 100 mg capsule 100 mg PO Q12H 5 Days Qty: 10 0RF Rx Instructions: must administer with a meal/food phenazopyridine [Pyridium] 200 mg tablet 200 mg PO TID PRN (Reason: pain) Qty: 10 0RF naproxen 500 mg tablet 500 mg PO BID PRN (Reason: pain) 10 Days Qty: 20 0RF amoxicillin-pot clavulanate 875-125 mg tablet 1 tab PO BID 7 Days Qty: 14 0RF cefuroxime axetil 500 mg tablet 500 mg PO BID Qty: 14 0RF Print Language: Emirati
[2023-09-05 14:00] VITALS: BP 120/70; PULSE 80; TEMP 36.6; O2SAT 98
[2023-09-05 14:05] LABS: UPreg QC Valid YES; Urine Pregnancy NEGATIVE (NEGATIVE)
[2023-09-05 14:19] LABS: Appearance Urine Clear; Color Urine Yellow; Glucose Urine UA Negative (Negative); Leukocyte Esterase Urine Negative (Negative); Nitrite Urine Negative (Negative); PH 5.5 (5.0-9.0); Specific Gravity - Urine 1.025 (1.005-1.025); Urine Blood Negative (Negative); Urine Ketones 15 mg/dL (Negative); Urine Protein Negative (Neg-Trace)
--- NOTE | 2023-09-05 15:40 | PC.NURSE ---
internal exam performed by provider, urine previously obtained
[2023-09-05] MEDS: metroNIDAZOLE 500 MG TABLET PO (15:48)
[2023-09-05] MEDS: cefTRIAXone sodium 1 GM, Lidocaine HCl 1 % MPF 2.1 ML IM (15:48)
[2023-09-05] MEDS: Doxycycline Monohydrate 100 MG CAPSULE PO (15:48)
--- NOTE | 2023-09-05 16:09 | PC.NURSE ---
pt medicated per orders
[2023-09-05 16:10] VITALS: BP 128/76; PULSE 88; RESP 16; TEMP 36.3; O2SAT 98
[2023-09-05 17:48] LABS: Bacterial Vaginosis PCR NEGATIVE (Negative); Candida Group PCR NOT DETECTED (Not Detect); Candida glab krusei PCR NOT DETECTED (Not Detect); Trichomonas vaginalis PCR NOT DETECTED (Not Detect)
[2023-09-05 18:32] LABS: CT PCR NOT DETECTED (Not Detect.); NG PCR NOT DETECTED (Not Detect.)
== END 2023-09-05 16:11 | disposition home or self-care (01) ==
PROVIDERS: Physician Assistant; Emergency Provider Emergency Medicine
DX: R30.0 Dysuria (principal); N89.8 Other specified noninflammatory disorders of vagina; Z20.2 Contact with and (suspected) exposure to infections with a predominantly sexual mode of transmission
CPT/HCPCS: 0352U; 0353U; 81003; 81025; 96372; 99283; 99284; J0696

== ENCOUNTER 2023-12-11 08:58 | Emergency (ER) | payer OTHER, SELFPAY ==
[2023-12-11 09:11] VITALS: BP 149/86; PULSE 84; RESP 17; TEMP 36.6; O2SAT 99; BMI 33.1
--- NOTE | 2023-12-11 11:14 | ED_ITS ---
HPI - Female Genitourinary General Chief complaint: Urogenital-Female Stated complaint: vaginal discomfort Related Data Previous Rx's ?Medication ?Instructions ?Recorded metronidazole 500 mg tablet 500 mg PO BID BV 7 days #14 tabs 02/21/20 (Flagyl) nitrofurantoin 100 mg PO BID uti 7 days #14 caps 02/21/20 monohydrate/macrocrystals 100 mg capsule (Macrobid) cephalexin 500 mg capsule 500 mg PO Q6H 10 days #40 caps 12/20/20 ibuprofen 800 mg tablet 800 mg PO Q8H PRN pain #14 tabs 12/20/20 cephalexin 500 mg capsule 500 mg PO Q12H 3 days #6 caps 01/26/21 phenazopyridine 100 mg tablet 100 mg PO TID PRN pain 6 doses #6 01/26/21 (Pyridium) tabs cefuroxime axetil 250 mg tablet 250 mg PO Q12H #14 tabs 02/02/22 nitrofurantoin 100 mg PO Q12H 5 days #10 caps 06/30/22 monohydrate/macrocrystals 100 mg capsule (Macrobid) phenazopyridine 200 mg tablet 200 mg PO TID PRN pain 6 doses #10 06/30/22 (Pyridium) tabs amoxicillin 875 mg-potassium 1 tab PO BID 7 days #14 tabs 07/31/22 clavulanate 125 mg tablet naproxen 500 mg tablet 500 mg PO BID PRN pain 10 days #20 07/31/22 tabs amoxicillin 500 mg capsule 500 mg PO TID #21 caps 09/11/22 oxycodone 5 mg tablet 5 mg PO Q6H PRN severe pain (scale 09/11/22 score 7-10) #12 tabs erythromycin 5 mg/gram (0.5 %) eye 0.5 inch ophthalmic (eye) Q4H #3.5 12/10/22 ointment grams cefuroxime axetil 500 mg tablet 500 mg PO BID #14 tabs 04/09/23 doxycycline monohydrate 100 mg 100 mg PO BID 7 days #14 caps 09/05/23 capsule metronidazole 500 mg tablet 500 mg PO BID 7 days #14 tabs 09/05/23 cefuroxime axetil 250 mg tablet 250 mg PO BID #14 tabs 12/15/23 Allergies Allergy/AdvReac Type Severity Reaction Status Date / Time No Known Allergies Allergy Verified 12/11/23 09:13 [facility] Past Medical History Medical History Urinary tract infection Social History Social History Alcohol intake: current Alcohol intake frequency: a few times a month Advance Directives: No Advance Directives Information Provided: No Do you have a plan to hurt others: No Plan Physical Exam 2 Vital Signs: Vital Signs: Last Vital Signs Temp 98 F 12/11/23 09:11 Pulse 84 12/11/23 09:11 Resp 17 12/11/23 09:11 BP 149/86 H 12/11/23 09:11 Pulse Ox 99 12/11/23 09:11 O2 Del Method Room Air 12/11/23 09:11 BMI result Body Mass Index 33.1 Course Course Course Narrative: This is a Rapid Medical Exam performed in triage by Abimbola Ramírez PA-C. Full HPI, ROS and PE to be performed by primary ED provider. 33 yo F presenting to the ED c/o odorous vaginal discharge & brown vaginal d/c x 1 mos s/p receiving Depo Shot. has been see for similar symptoms. Also reports intermittent low back/side pain. Admits received Depo shot on 11/09. With sexually active with 1 partner, denies concern for STI. Denies dysuria, hematuria, abdominal pain. PE: nontoxic appearing, VSS Plan: labs, UA, CTNG Reevaluation(s) Reevaluation #1: 12/15/23 14:54 urine culture positive for E coli. Patient notified via telephone of results and antibiotics sent to pharmacy. Patient also notified of negative CT NG. Medical Decision Making Lab Data 12/11/23 11:56 12/11/23 11:56 Labs: Lab Results 12/11/23 Range/Units 11:56 WBC 8.5 (4.8-10.8) X10*3/uL RBC 4.78 (4.20-5.50) X10*6/uL Hgb 13.2 (12.0-16.0) g/dl Hct 39.6 (37.0-47.0) % MCV 82.8 (80.0-98.0) fL MCH 27.6 (27.0-33.0) pg MCHC 33.3 (31.0-35.0) g/dl RDW 13.6 (11.0-16.0) % Plt Count 272 (160-400) X10*3/uL MPV 10.7 (9.4-12.3) fL Immature Gran % (Auto) 0.5 H (0.0-0.4) % Neut % (Auto) 62.5 (45-73) % Lymph % (Auto) 30.2 (20-40) % Hardy % (Auto) 5.5 (2-11) % Eos % (Auto) 0.7 (0-4) % Baso % (Auto) 0.6 (0-2) % Lymph # (Auto) 2.6 (1.2-4.9) X10*3/uL Hardy # (Auto) 0.5 (0.1-1.2) X10*3/uL Eos # (Auto) 0.1 (0.0-0.4) X10*3/uL Baso # (Auto) 0.1 (0.0-0.2) X10*3/uL Abs Immat Gran (auto) 0.04 H (0.00-0.03) X10*3/uL Absolute Neuts (auto) 5.3 (2.0-8.3) x10*3/uL Absolute Nucleated RBC 0.000 (0.0-0.012) X10*3/uL Nucleated RBC % (auto) 0.0 (0.0-0.2) /100WBC Sodium 144 (135-145) mmol/L Potassium 4.0 (3.3-5.1) mmol/L Chloride 108 (96-108) mmol/L Carbon Dioxide 28 (22-29) mmol/L Anion Gap 12 (12-20) BUN 11 (9-16) mg/dL Creatinine 0.86 (0.5-1.4) mg/dL Estim Creat Clear Calc 85.3 Estimated GFR > 60 Random Glucose 101 (60-115) mg/dL Calcium 9.9 (8.4-10.2) mg/dL Urine Color Yellow Urine Appearance Clear Urine pH 6.5 (5.0-9.0) Ur Specific [place] 1.020 (1.005-1.025) Urine Protein Negative (Neg-Trace) mg/dL Urine Glucose (UA) Negative (Negative) mg/dL Urine Ketones Negative (Negative) mg/dL Urine Blood Large (3+) H (Negative) Urine Nitrite Negative (Negative) Ur Leukocyte Esterase Trace H (Negative) Urine RBC >20 H (0-2) /HPF Urine WBC 11-20 H (0-5) /HPF Ur Squamous Epith Cells 6-10 (0-2) /HPF Urine Bacteria None Seen (None Seen) Hyaline Casts 0-2 (0-2) /LPF Urine Test NEGATIVE (NEGATIVE) Chlam trachomat DNA PCR NOT DETECTED (Not Detect.) N.gonorrhoeae DNA (PCR) NOT DETECTED (Not Detect.) Discharge Plan Discharge Clinical Impression: Urinary tract infection Patient Disposition: Left W/O Completing Treatment Prescriptions: New cefuroxime axetil 250 mg tablet 250 mg PO BID Qty: 14 0RF No Action metronidazole [Flagyl] 500 mg tablet 500 mg PO BID 7 Days Qty: 14 0RF nitrofurantoin monohyd/m-cryst [Macrobid] 100 mg capsule 100 mg PO BID 7 Days Qty: 14 0RF Rx Instructions: must administer with a meal/food cephalexin 500 mg capsule 500 mg PO Q12H 3 Days Qty: 6 0RF phenazopyridine [Pyridium] 100 mg tablet 100 mg PO TID PRN (Reason: pain) Qty: 6 0RF ibuprofen 800 mg tablet 800 mg PO Q8H PRN (Reason: pain) Qty: 14 0RF cephalexin 500 mg capsule 500 mg PO Q6H 10 Days Qty: 40 0RF cefuroxime axetil 250 mg tablet 250 mg PO Q12H Qty: 14 0RF amoxicillin 500 mg capsule 500 mg PO TID Qty: 21 0RF oxycodone 5 mg tablet 5 mg PO Q6H PRN (Reason: severe pain (scale score 7-10)) Qty: 12 0RF Rx Instructions: Partial Fill upon patient request. erythromycin 5 mg/gram (0.5 %) ointment 0.5 inch ophthalmic (eye) Q4H Qty: 3.5 0RF nitrofurantoin monohyd/m-cryst [Macrobid] 100 mg capsule 100 mg PO Q12H 5 Days Qty: 10 0RF Rx Instructions: must administer with a meal/food phenazopyridine [Pyridium] 200 mg tablet 200 mg PO TID PRN (Reason: pain) Qty: 10 0RF naproxen 500 mg tablet 500 mg PO BID PRN (Reason: pain) 10 Days Qty: 20 0RF amoxicillin-pot clavulanate 875-125 mg tablet 1 tab PO BID 7 Days Qty: 14 0RF cefuroxime axetil 500 mg tablet 500 mg PO BID Qty: 14 0RF doxycycline monohydrate 100 mg capsule 100 mg PO BID 7 Days Qty: 14 0RF metronidazole 500 mg tablet 500 mg PO BID 7 Days Qty: 14 0RF Discharge Date/Time: 12/11/23 16:30
[2023-12-11 12:04] LABS: MANUAL DIFF FLAG NO
[2023-12-11 12:08] LABS: Basophils Absolute Auto 0.1 X10*3/uL (0.0-0.2); Basophils Percent Auto 0.6 % (0-2); Eosinophils Absolute Auto 0.1 X10*3/uL (0.0-0.4); Eosinophils Percent Auto 0.7 % (0-4); Hematocrit 39.6 % (37.0-47.0); Hemoglobin 13.2 g/dl (12.0-16.0); Imm Gran Abs Auto 0.04 X10*3/uL (0.00-0.03); Imm Gran Pct Auto 0.5 % (0.0-0.4); Lymphocytes Absolute Auto 2.6 X10*3/uL (1.2-4.9); Lymphocytes Percent Auto 30.2 % (20-40); Mean Corpuscular HGB Conc 33.3 g/dl (31.0-35.0); Mean Corpuscular Hemoglobin 27.6 pg (27.0-33.0); Mean Corpuscular Volume 82.8 fL (80.0-98.0); Mean Platelet Volume 10.7 fL (9.4-12.3); Monocytes Absolute Auto 0.5 X10*3/uL (0.1-1.2); Monocytes Percent Auto 5.5 % (2-11); Neutrophils Absolute Auto 5.3 x10*3/uL (2.0-8.3); Neutrophils Percent Auto 62.5 % (45-73); Platelet Count 272 X10*3/uL (160-400); Red Blood Count 4.78 X10*6/uL (4.20-5.50); Red Cell Distribution Width 13.6 % (11.0-16.0); White Blood Count 8.5 X10*3/uL (4.8-10.8)
[2023-12-11 12:10] LABS: Appearance Urine Clear; Color Urine Yellow; Glucose Urine UA Negative (Negative); Leukocyte Esterase Urine Trace (Negative); Nitrite Urine Negative (Negative); PH 6.5 (5.0-9.0); UMIC TRIGGER UACC YES; Urine Blood Large (3+) (Negative); Urine Ketones Negative (Negative); Urine Protein Negative (Neg-Trace)
[2023-12-11 12:13] LABS: UPreg QC Valid YES; Urine Pregnancy NEGATIVE (NEGATIVE)
[2023-12-11 12:15] LABS: Bacteria Urine None Seen (None Seen); Hyaline Casts Urine 0-2 /LPF (0-2); RBC Urine >20 /HPF (0-2); UACC Culture Trigger YES
[2023-12-11 12:24] LABS: Anion Gap 12 (12-20); Blood Urea Nitrogen 11 mg/dL (9-16); Calcium 9.9 mg/dL (8.4-10.2); Carbon Dioxide 28 mmol/L (22-29); Chloride 108 mmol/L (96-108); Creatinine Clr Calc Pharmacy 85.3; Estimated Glomerular Filt Rate > 60; Glucose Random 101 mg/dL (60-115); Sodium 144 mmol/L (135-145)
[2023-12-11 13:39] LABS: CT PCR NOT DETECTED (Not Detect.); NG PCR NOT DETECTED (Not Detect.)
== END 2023-12-11 16:30 | disposition left against medical advice (07) ==
PROVIDERS: Physician Assistant; Emergency Provider Emergency Medicine
DX: N39.0 Urinary tract infection, site not specified (principal); B96.20 Unspecified Escherichia coli [E. coli] as the cause of diseases classified elsewhere; Z79.899 Other long term (current) drug therapy
CPT/HCPCS: 36415; 80048; 81001; 81025; 85025; 87086; 87088; 87186; 87491; 87591; 99282; 99283

== ENCOUNTER 2024-02-18 10:02 | Outpatient (AMB) | payer OTHER, SELFPAY ==
[2024-02-18 10:06] VITALS: BP 108/68; PULSE 69; O2SAT 98; BMI 35.0
--- NOTE | 2024-02-18 10:06 | A.OFFPC_ITS ---
Vital Signs 02/18/24 10:06 Height 5 ft Weight 179 lb 0.6 oz BMI 35.0 BP 108/68 Blood Pressure Location Lt brachial Position Sitting Pulse 69 Pulse Source Pulse Oximeter Pulse Oximetry (%) 98 Oxygen Delivery Method Room Air Intake Visit Reasons: establish care Allergies No Known Allergies Allergy (Verified 02/18/24 10:25) Medication List - Last Reconciled 02/18/24 by Pamela Herrera PA-C No Known Home Meds Tobacco use date assessed: 02/18/24 Dental Screening Dental Screen Date: 02/18/24 Did you have a dental visit in the last 12 months?: No Did you have a dental problem in the last 6 months where you did not have access to dental care?: No Was dental information given to patient?: No HPI establish care HPI Details 33-year-old female with past medical his tory of recurrent UTIs coming to the office for the 1st time. In review of the notes, patient has been seen several times this year in the emergency department for urinary tract infection. Patient follows with gynecology through [facility] and has regular Pap smears. She does have a history of recurrent UTIs and states she does often hold her urine especially after intercourse and does not drink enough water. She also mentioned she has chronic mid to low back pain does not radiate and denies any injury, falls or accidents. The pain has been going on for 3-4 years since her 1st . The pain is positional and will occasionally become stiff feels like she needs to stretch [facility] Medical History Urinary tract infection Family History (Updated 02/18/24 @ 10:27 by Pamela Herrera PA-C) Father Diabetes Mother Brain aneurysm Congestive heart failure Maternal Aunt Breast cancer Social History Alcohol intake: current Alcohol intake frequency: a few times a month Patient Tobacco Use Status: Never used Tobacco service: No Current occupational status: employed and student Cognitive needs: No Hearing needs: No Vision needs: No Female Reproductive History Menstrual Total pregnancies: 3 Full term: 3 Questionnaire PHQ-9 Over the last 2 weeks, how often have you been bothered by any of the following problems? 1. Little interest or pleasure in doing things: not at all 2. Feeling down, depressed, or hopeless: not at all 3. Trouble falling or staying asleep, or sleeping too much: not at all 4. Feeling tired or having little energy: not at all 5. Poor appetite or overeating: not at all 6. Feeling bad about yourself - or that you are a failure or have let yourself or your family down: not at all 7. Trouble concentrating on things, such as reading the newspaper or watching television: not at all 8. Moving or speaking so slowly that other people could have noticed. Or the opposite - being so fidgety or restless that you have been moving around a lot more than usual: not at all 9. Thoughts that you would be better off or of hurting yourself in some way: not at all Total score: 0 Depression Screening Interpretation: Negative Depression Screening Done: Yes 93502 - PHQ-9 Billing: Yes Source: Developed by Drs. Reese Seymour, Temi Reagan, Julio Ratliff and colleagues, with an educational clyde from [employer]. Thrive Questionnaire Date Thrive assessed: 02/18/24 I am a: Patient What is your living situation today?: I have a steady place to live Within the past 12 months, did the food you bought not last and you didn't have the money to get more?: Never true Within the past 12 months, did you worry whether your food would run out before you got money to buy more?: Never true Do you have trouble paying for medicines?: No Do you have trouble getting transportation to medical appointments?: No Do you have trouble paying your heating and electricity bill?: No Do you have trouble taking care of your child, family member or friend?: No Do you have trouble with day-to-day activities such as bathing, preparing meals, shopping, managing finances, etc.?: No Are you currently unemployed and looking for a job?: Yes Are you interested in more education?: Yes Please select the resources that you would like help with: None Currently or been in a relationship where the following occur: No concerns reported and I choose not to answer THRIVE Score: 0 AUDIT C Alcohol Use Questionnaire (AUDIT-C) 1. How often do you have a drink containing alcohol?: Monthly or less (holidays ) 2. How many drinks containing alcohol do you have on a typical day when you are drinking?: 1 or 2 3. How often do you have six or more drinks on one occasion?: Never Total Score: 1 TRINO-7 AMB Questionnaire TRINO-7 Date TRINO - 7 assessed: 02/18/24 Feeling nervous, anxious, or on edge: 0 = Not at all Not being able to stop or control worryin = Not at all Worrying too much about different things: 0 = Not at all Trouble relaxin = Not at all Being so restless that it is hard to sit still: 0 = Not at all Becoming easily annoyed or irritable: 0 = Not at all Feeling afraid as if something awful might happen: 0 = Not at all Total TRINO-7 score (0-4 normal; 5-9 mild; 10-14 moderate; 15-21 severe): 0 Source: Developed by Drs. Reese Seymour, Temi Reagan, Julio Ratliff and colleagues, with an educational clyde from [employer]. TRINO-7 Assessment Billing TRINO-7 Assessment Tool: TRINO-7 Assessment 60661 Review of Systems Const Denies body aches, Denies fatigue, Denies fever(s), Denies frequent falls, Denies headache(s) and Denies weakness Eyes Reports no additional complaints and Denies change in vision ENT Denies dysphagia, Denies facial pain, Denies headache(s), Denies nasal congestion and Denies odynophagia Card Denies chest pain, Denies syncope, Denies irregular heart rhythm, Denies leg edema, Denies lightheadedness and Denies dyspnea Resp Denies cough and Denies dyspnea GI Denies abdominal pain, Denies constipation, Denies dysphagia, Denies dyspepsia, Denies diarrhea, Denies nausea, Denies odynophagia and Denies vomiting Denies urinary frequency, Denies dysuria, Denies urinary hesitancy and Denies urinary urgency Musc Denies back pain and Denies myalgias Skin/Breast Reports system reviewed and no additional complaints, except as documented Neuro Denies syncope, Denies frequent falls, Denies headache(s) and Denies weakness Psych Reports no additional complaints Endo Denies fatigue Physical exam (Primary Care) Vital Signs: Last Vital Signs Pulse 69 02/18/24 10:06 BP 108/68 02/18/24 10:06 Pulse Ox 98 02/18/24 10:06 Oxygen Delivery Method Room Air 02/18/24 10:06 BMI result Body Mass Index 35.0 Tobacco/Smoking Status: Tobacco use Status Tobacco use date assessed 02/18/24 02/18/24 10:15 Patient Tobacco Use Status Never used Tobacco 02/18/24 10:15 PHQ-9: PHQ-9 Score PHQ-9: Total score 0 02/18/24 12:29 Depression Screening Interpretation: Negative Thrive Assessment: Date of Thrive Assessment Date Thrive assessed 02/18/24 02/18/24 10:15 Currently or been in a relationship where the following occur: No concerns reported and I choose not to answer Const General: cooperative, healthy appearing, comfortable and no acute distress Orientation/consciousness: patient oriented x3 HENMT Head: Yes normocephalic Ears: hearing grossly normal bilaterally General nose exam: Normal external nose present Face and sinus: Yes normal facial exam and Yes sinuses nontender Mouth: Normal oral and palatal mucosa present and tongue normal Throat: Yes posterior oropharynx normal Eyes General: appearance normal, both eyes and all related structures Conjunctivae: conjunctivae normal Pupils: Equal, round and reactive pupils present EOM: EOMs intact bilaterally and No Nystagmus present Neck Neck: Yes full ROM and Yes no lymphadenopathy Chest Chest palpation & inspection: normal inspection of the chest Resp Effort & Inspection: normal respiratory effort Auscultation: clear to auscultation bilaterally, no crackles, no rales, no rhonchi and no wheezes Cardio Rate: regular rate Rhythm: regular rhythm Peripheral pulses: radial pulses present and dorsalis pedis present GI Inspection: Yes normal to inspection and No Abdominal wall edema Palpation (GI): Soft to palpation, not firm and nontender Auscultation: normal bowel sounds Rectal Exam - Female: deferred General: Yes no CVA tenderness Back/Spine/Pelvis Other: Tenderness to palpation over thoracic spine and paraspinous muscles Back: no CVA tenderness Skin General skin exam: no rashes or lesions noted Neuro General: patient oriented x3 Cranial nerves: Yes Equal, round and reactive pupils present, Yes Midline tongue present, Yes Ability to bilaterally elevate shoulders present and No Nystagmus present Gait exam (Neuro): Normal gait present Extrem General: Yes normal to inspection, Yes full ROM and No edema Psych Speech and movement: Normal speech and movement present Affect: normal affect Attitude: cooperative Insight: Good insight present (Psych) Judgement: Good judgement present (Psych) Office Procedures Flu Questionnaire Does the patient have a severe egg allergy?: No Does the patient have severe life threatening allergies?: No Does the patient have a fever or illness today?: No Has the patient ever had Guillain-[place] Syndrome?: No Has the patient ever had any past reaction to a flu shot?: No Immunizations Fluarix Triv [id number] (PF) 45 mcg (15 mcg x 3)/0.5 mL IM syringe Performing Provider: Pamela Herrera PA-C Performing Location: [facility] [place] [facility] Administered by: MARIA DEL CARMEN Valencia on 02/18/24 10:52 Dose Route Admin Location Dispensed Lot Number Expiration Date NDC Dyed Yarn Operator 0.5 mL IM Left Deltoid 0.5 mL [id number] 09/14/24 [id number] [place] VIS Given Date VIS Provided VIS Publication Date 02/18/24 Single Vaccine 20 Eligibility Eligibility Date Funding Source Not [facility] Eligible 02/18/24 Private Coding Level of Care Code Est Pt Prev Care 18-39y(68197) Diagnoses Annual physical exam Z00.00 Mid back pain M54.9 Recurrent UTI N39.0 Additional Codes TRINO-7 Assessment Billing - TRINO-7 Assessment Tool: TRINO-7 Assessment 87656 ([id number]) PHQ-9 - 94565 - PHQ-9 Billing: Yes ([id number]) Assessment & Plan Assessment & Plan (1) Annual physical exam: Code(s): Z00.00 - Encounter for general adult medical examination without abnormal findings Category: Medical Plan: Patient is up-to-date on all recommended routine screenings and vaccinations for her age. She is unsure about her tetanus vaccine and will check on the status of this. Flu shot given today. (2) Mid back pain: Code(s): M54.9 - Dorsalgia, unspecified Category: Medical Plan: Patient complaining of mid back pain we will defer x-ray at this time and refer to physical therapy. If pain is persistent can consider x-ray. (3) Recurrent UTI: Code(s): N39.0 - Urinary tract infection, site not specified Category: Medical Plan: Patient complaining of recurrent UTIs 3 UTIs this year. Advised to increase water intake and schedule regular voiding times. If persistently having urinary tract infections we will refer to Urology. Plan This note was constructed using voice recognition software. While every effort has been made to ensure accuracy and gear hobber set up operator, still areas may have been included sometimes these areas may affect the content or meeting of the given symptoms. Total time spent caring for the patient today was 30 minutes. This includes time spent before the visit reviewing the chart, time spent during the visit, and time spent after the visit and documentation. Orders: Orders Comprehensive Met. Panel Today Z00.00 - Encounter for general adult medical examination without abnormal findings Lipid Panel Today Z13.220 - Encounter for screening for lipoid disorders Vitamin D 25-OH (D2 and D3) Today Z00.00 - Encounter for general adult medical examination without abnormal findings Complete Blood Count Auto Diff Today Z00.00 - Encounter for general adult medical examination without abnormal findings Vitamin B12 and Folate Today Z00.00 - Encounter for general adult medical examination without abnormal findings UA CC w/rflx Micro + Cult Today R35.89 - Other polyuria TSH reflex Free T4 Today Z00.00 - Encounter for general adult medical examination without abnormal findings Free T4 (Free Thyroxine) Today Z00.00 - Encounter for general adult medical examination without abnormal findings PT Evaluation and Treatment Today M54.9 - Dorsalgia, unspecified Influenza [id number] Immunization Today Z23 - Encounter for immunization Referrals Optometry Referral Z00.00 - Encounter for general adult medical examination without abnormal findings Medications: Discontinued cephalexin Discontinued Reason: Patient Completed Course 500 mg PO Q12H 3 days 6 caps 0RF phenazopyridine (Pyridium) Discontinued Reason: Patient Completed Course 100 mg PO TID PRN 6 tabs 0RF pain cefuroxime axetil Discontinued Reason: Patient Completed Course 250 mg PO Q12H 14 tabs 0RF nitrofurantoin monohyd/m-cryst 100 mg (Macrobid) must administer with a meal/food Discontinued Reason: Patient Completed Course 100 mg PO Q12H 5 days 10 caps 0RF amoxicillin Discontinued Reason: Patient Completed Course 500 mg PO TID 21 caps 0RF oxycodone Partial Fill upon patient request. Discontinued Reason: Patient no longer taking 5 mg PO Q6H PRN 12 tabs 0RF severe pain (scale score 7-10) cefuroxime axetil Discontinued Reason: Patient Completed Course 500 mg PO BID 14 tabs 0RF doxycycline monohydrate Discontinued Reason: Patient Completed Course 100 mg PO BID 7 days 14 caps 0RF phenazopyridine (Pyridium) Discontinued Reason: Patient Completed Course 200 mg PO TID PRN 10 tabs 0RF pain amoxicillin-pot clavulanate 875-125 mg Discontinued Reason: Patient Completed Course 1 tab PO BID 7 days 14 tabs 0RF naproxen Discontinued Reason: Patient no longer taking 500 mg PO BID 10 days PRN 20 tabs 0RF pain erythromycin Discontinued Reason: Patient Completed Course 0.5 inches ophthalmic (eye) Q4H 3.5 grams 0RF metronidazole Discontinued Reason: Patient Completed Course 500 mg PO BID 7 days 14 tabs 0RF cefuroxime axetil Discontinued Reason: Patient Completed Course 250 mg PO BID 14 tabs 0RF
== END 2024-02-18 11:12 | disposition home or self-care (01) ==
DX: Z00.00 Encounter for general adult medical examination without abnormal findings (principal); M54.9 Dorsalgia, unspecified; N39.0 Urinary tract infection, site not specified; Z23 Encounter for immunization

== ENCOUNTER → 2024-02-18 10:02 | Outpatient (BNVA) | payer OTHER, SELFPAY | DX: Z00.00 Encounter for general adult medical examination without abnormal findings (principal); Z23 Encounter for immunization; M54.9 Dorsalgia, unspecified; N39.0 Urinary tract infection, site not specified | CPT/HCPCS: 90471; 90656; 96127; 99395 ==

== ENCOUNTER 2024-03-02 11:45 | Outpatient (REF) | payer OTHER, SELFPAY ==
[2024-03-02 12:07] LABS: MANUAL DIFF FLAG NO
[2024-03-02 12:57] LABS: Basophils Absolute Auto 0.1 X10*3/uL (0.0-0.2); Basophils Percent Auto 0.7 % (0-2); Eosinophils Absolute Auto 0.1 X10*3/uL (0.0-0.4); Eosinophils Percent Auto 0.9 % (0-4); Hemoglobin 12.4 g/dl (12.0-16.0); Imm Gran Abs Auto 0.02 X10*3/uL (0.00-0.03); Imm Gran Pct Auto 0.3 % (0.0-0.4); Lymphocytes Absolute Auto 1.9 X10*3/uL (1.2-4.9); Lymphocytes Percent Auto 26.7 % (20-40); Mean Corpuscular HGB Conc 32.6 g/dl (31.0-35.0); Mean Corpuscular Hemoglobin 27.5 pg (27.0-33.0); Mean Corpuscular Volume 84.3 fL (80.0-98.0); Mean Platelet Volume 10.8 fL (9.4-12.3); Monocytes Absolute Auto 0.4 X10*3/uL (0.1-1.2); Monocytes Percent Auto 5.4 % (2-11); Neutrophils Absolute Auto 4.6 x10*3/uL (2.0-8.3); Platelet Count 298 X10*3/uL (160-400); Red Blood Count 4.51 X10*6/uL (4.20-5.50); Red Cell Distribution Width 13.8 % (11.0-16.0)
[2024-03-02 13:03] LABS: Appearance Urine Clear; Color Urine Yellow; Glucose Urine UA Negative (Negative); Leukocyte Esterase Urine Negative (Negative); Nitrite Urine Negative (Negative); Urine Blood Negative (Negative); Urine Ketones Negative (Negative); Urine Protein Negative (Neg-Trace)
[2024-03-02 13:24] LABS: Alanine Aminotransferase 28 U/L (0-31); Albumin Level 4.1 g/dL (3.5-5.0); Alkaline Phosphatase 99 U/L (39-117); Anion Gap 9 (12-20); Aspartate Amino Transferase 26 U/L (5-31); Bilirubin Total 0.3 mg/dL (0.0-1.0); Blood Urea Nitrogen 9 mg/dL (9-16); Calcium 8.8 mg/dL (8.4-10.2); Carbon Dioxide 29 mmol/L (22-29); Chloride 105 mmol/L (96-108); Cholesterol 137 mg/dL (<200); Estimated Glomerular Filt Rate > 60; Glucose Random 85 mg/dL (60-115); HDL Cholesterol 52 mg/dL (>40); LDL Cholesterol Calculated 57 mg/dL (<100); Sodium 139 mmol/L (135-145); Total Protein 7.1 g/dL (6.5-8.0); Triglycerides 141 mg/dL (<150)
[2024-03-02 13:38] LABS: Free T4 (Free Thyroxine) 0.94 ng/dL (0.71-1.85); TSH reflex Free T4 3.08 uIU/mL (0.32-4.0)
[2024-03-02 13:46] LABS: Folate 9.7 ng/mL (> or = 4.0); Vitamin B12 473 pg/mL (200-900)
[2024-03-06 16:04] LABS: Vitamin D 25-OH, D2 <4 ng/mL; Vitamin D 25-OH, D3 16 ng/mL; Vitamin D 25-OH, Total 16 ng/mL (30-100)
== END 2024-03-02 11:46 | disposition home or self-care (01) ==
LOC: HO.LAB 11:45
DX: Z00.00 Encounter for general adult medical examination without abnormal findings (principal); Z13.220 Encounter for screening for lipoid disorders; R35.89 Other polyuria
CPT/HCPCS: 36415; 80053; 80061; 81003; 82306; 82607; 82746; 84439; 84443; 85025

== ENCOUNTER 2024-05-21 11:14 | Outpatient (REF) | payer OTHER, SELFPAY ==
[2024-05-21 12:30] LABS: Appearance Urine Clear; Color Urine Yellow; Glucose Urine UA Negative (Negative); Leukocyte Esterase Urine Trace (Negative); Nitrite Urine Negative (Negative); PH 5.5 (5.0-9.0); UMIC TRIGGER UACC YES; Urine Blood Negative (Negative); Urine Ketones Negative (Negative); Urine Protein Negative (Neg-Trace)
[2024-05-21 12:35] LABS: Bacteria Urine 4+ (None Seen); Hyaline Casts Urine 0-2 /LPF (0-2); RBC Urine 0-2 /HPF (0-2); UACC Culture Trigger YES
--- OUTSIDE RECORDS SUMMARY | 2024-05-21 13:51 | XMS_ITS | Clinical Summary ---
Author Organization [facility] it Address [address] [place] [address] Care Team Providers Care Sql Architect Name Role Phone Holden Lora MD Primary Care Provider [phone] Surgical History Surgery Date Site/Laterality Comments OTHER SURGICAL HISTORY PROCEDURE: DENIES PREVIOUS SURGERY Medical History Medical History Date Comments Anemia DX:Anemia Abnormal cytological finding in specimen from cervix 12/23/12 DX:Abnormal cytological find ing in specimen from cervix; COMMENT: BOB 1 colpo 01/16/13 negative Family History Medical History Relation Name Comments No Known Problems Brother 1 No Known Problems Brother 2 Diabetes Father po med Hypertension Father Cerebral aneurysm Mother Hypertension Mother No Known Problems Sister Breast cancer Neg Hx Ovarian cancer Neg Hx Relation Name Status Comments Brother 1 Alive Brother 2 Alive Father Alive Mother Sister Alive Social History Tobacco Use Types Packs/Day Years Used Date Smoking Tobacco: Never Smokeless Tobacco: Never Alcohol Use Standard Drinks/Week Comments No 0 (1 standard drink = 0.6 oz pur e alcohol) Comments Unknown Sex and Gender Information Value Date Recorded Sex Assigned at Not on file Legal Sex Female 1:54 PM EST Gender Identity Not on file Sexual Orientation Not on file Obstetrics History Last Filed Vital Signs Vital Sign Reading Time Taken Comments Blood Pressure 117/65 10/08/2023 8:54 AM EDT Pulse 73 10/08/2023 8:54 AM EDT Temperature - - Respiratory Rate - - Oxygen Saturation - - Inhaled Oxygen Concentration - - Weight 74.4 kg (164 lb) 10/08/2023 8:54 AM EDT Height 152.4 cm (5') 10/08/2023 8:54 AM EDT Body Mass Index 32.03 10/08/2023 8:54 AM EDT Plan of Treatment Health Maintenance Due Date Last Done Comments Hepatitis B Vaccines (1 of 3 - 19+ 3-dose series) 2009 Depression Screening 02/14/2022 HIV Screening 02/14/2022 Hepatitis C Screening 02/14/2022 Social Influencers of Health Screening 02/14/2022 COVID-19 Vaccine (1 - 2023-2 5 season) 2023 Influenza Vaccine (#1) 2023 01/08/2018 Cervical Cancer Screening: P ap Smear 08/28/2025 08/28/2022 DTaP,Tdap,and Td Vaccines (3 - Td or Tdap) 05/01/2028 05/01/2018, 06/26/2016 HIB Vaccines Aged Out No longer eligi ble based on patient's age to complete this topic HPV Vaccines Aged Out No longer eligi ble based on patient's age to complete this topic Hepatitis A Vaccines Aged Out No long er eligible based on patient's age to complete this topic IPV Vaccines Aged Out No longer eligi ble based on patient's age to complete this topic MMR Vaccines Aged Out No longer eligi ble based on patient's age to complete this topic Meningococcal ACWY Vaccine Aged Out N o longer eligible based on patient's age to complete this topic Meningococcal B Vacine Aged Out No lo nger eligible based on patient's age to complete this topic Pneumococcal Vaccine: Pediatrics (0 to 5 Years) and At-Risk Patients (6 to 64 Years) Aged Out No longer eligible b ased on patient's age to complete this topic RSV Immunization Patients Under 20 months Aged Out No longer eligible b ased on patient's age to complete this topic Varicella Vaccines Aged Out No longer eligible based on patient's age to complete this topic Procedures Procedure Name Priority Date/Time Associated Diagnosis Comments PAP SMEAR Routine 08/28/2022 from Last 3 Months or Most Recently Relevant to Health Maintenance Results * Pap smear (08/28/2022) 08/28/2022 Narrative HISTORICAL TESTING LAB RESULTING AGENCY - 09/12/2022 4:40 PM EDT [id number] THINPREP PAP: NEGATIVE FOR SQUAMOUS INTRAEPITHELIAL LESION AND MALIGNANCY . REACTIVE CELLULAR CHANGES. ABUNDANT RED BLOOD CELLS ARE PRESENT. NOTE: ??ADEQUACY DEEMED SATISFACTORY AFTER REPROCESSING WITH ACID WASH PROCEDURE. NOTE: ??THIS PAP TEST COULD NOT BE IMAGED UTILIZING THE IMAGING SYSTEM AND REQUIRED MANUAL REVIEW. RONALD WESTBROOK , [place](ASCP) (CASE SCREENED 09 11 2022) LENIN KNIGHT M.D. , PATHOLOGIST (CASE ELECTRONICALLY SIGNED 09 12 2022) RESULT OF APTIMA HIGH RISK HPV ASSAY: HIGH RISK HPV: ??NEGATIVE (SEROTYPES 16,18,31,33,35,39,45,51,52,56,58,59,66,68) COMPLETED ON 2022-08-29 ADEQUACY: SATISFACTORY ENDOCERVICAL/TRANSFORMATION ZONE COMPONENT PRESENT. SOURCE: THINPREP PAP HPV ANY DX: ??REFLEX 16 AND 18, CERVICAL CLINICAL INFORMATION: HPV ANY DIAGNOSIS. HORMONES, PAP HX 11/2015 UNKNOWN, LMP 08/25/2022, [Z01.419] Vanessa Mejia [facility] LAB CYTOLOGY ORDERABLES Final Result HISTORICAL TESTING LAB RESULTING AGENCY from Last 3 Months or Most Recently Relevant to Health Maintenance Care Teams Sql Architect Relationship Specialty Start Date End Date Holden Lora MD [address] [place] [address] Dr Dara MA PCP - General Internal Medicine 03/20/18
== END 2024-05-21 11:15 | disposition home or self-care (01) ==
LOC: HO.LAB 11:14
DX: R39.9 Unspecified symptoms and signs involving the genitourinary system (principal)
CPT/HCPCS: 81001; 87086; 87088; 87186

== ENCOUNTER 2024-08-19 08:45 | Outpatient (REF) | payer OTHER, SELFPAY ==
--- OUTSIDE RECORDS SUMMARY | 2024-08-19 08:57 | XMS_ITS | Clinical Summary ---
Author Organization [facility] it Address [address] [place] [address] Care Team Providers Care Customer Service Professional Name Role Phone Holden Lora MD Primary Care Provider [phone] Surgical History Surgery Date Site/Laterality Comments OTHER [...] - 2023-2 5 season) 2023 Influenza Vaccine (Season Ended) 2024 01/08/2018 Cervical Cancer Screening: P ap Smear [...] age to complete this topic Meningococcal B Vaccine Aged Out No l onger eligible based on patient's age to complete [...] RESULTING AGENCY - 09/12/2022 4:40 PM EDT [id number] THINPREP PAP: NEGATIVE FOR SQUAMOUS INTRAEPITHELIAL LESION [...] 11/2015 UNKNOWN, LMP 08/25/2022, [Z01.419] Vanessa Mejia [facility] LAB CYTOLOGY ORDERABLES Final Result HISTORICAL TESTING LAB RESULTING AGENCY from Last 3 Months or Most Recently Relevant to Health Maintenance Care Teams Customer Service Professional Relationship Specialty Start Date End Date Holden Lora MD [address] [place] [address] Dr Dara MA PCP - General Internal Medicine 03/20/18
[2024-08-19 09:36] LABS: Appearance Urine Clear; Color Urine Yellow; Glucose Urine UA Negative (Negative); Leukocyte Esterase Urine Trace (Negative); Nitrite Urine Negative (Negative); PH 5.5 (5.0-9.0); UMIC TRIGGER UACC YES; Urine Blood Negative (Negative); Urine Ketones Negative (Negative); Urine Protein Negative (Neg-Trace)
[2024-08-19 09:42] LABS: Bacteria Urine None Seen (None Seen); Hyaline Casts Urine 0-2 /LPF (0-2); RBC Urine 0-2 /HPF (0-2); Squamous Epithelial Cell Urine 0-2 /HPF (0-2); UACC Culture Trigger YES
== END 2024-08-19 08:46 | disposition home or self-care (01) ==
LOC: HO.LAB 08:45
DX: R39.9 Unspecified symptoms and signs involving the genitourinary system (principal)
CPT/HCPCS: 81001; 87086; 87088; 87186